=== PATIENT | female | born 1995 | race American Indian/Alaskan Native ===

== ENCOUNTER → 2018-07-05 16:34 | Outpatient (CLI) | payer OTHER, SELFPAY ==
--- NOTE | 2018-07-05 16:42 | DI.RAD.S_ITS ---
PROCEDURE: XR CLAVICLE LT INDICATIONS: LEFT SHOLDER PAIN TECHNIQUE: 2 views of the clavicle were acquired. COMPARISON: [facility], CR, CLAVICLE COMP (LT), 08/10/2012, 21:02. FINDINGS: Bones: No fractures or dislocations. No suspicious bony lesions. Soft tissues: No suspicious soft tissue calcifications. IMPRESSION: No acute trauma to the clavicle is found. There is mild distortion of the clavicle at its middle third, consistent with a clinical history of prior midshaft fracture identified 08/10/12. Dictated by: Maykel Gomez M.D. on 07/05/2018 at 17:23 Approved by: Maykel Gomez M.D. on 07/05/2018 at 17:24
== END ==
PROVIDERS: PCP Family Medicine; Visit Provider Family Medicine
DX: M25.512 Pain in left shoulder (principal)
CPT/HCPCS: 73000

== ENCOUNTER 2018-11-18 16:56 | Emergency (ER) | payer OTHER, SELFPAY ==
[2018-11-18 17:03] VITALS: BP 128/85; PULSE 76; RESP 15; TEMP 37; O2SAT 99
[2018-11-18 17:34] LABS: Bacteria Urine Occasional (0-1); Culture Indicated Urine Specimen Cultured; RBC Urine >100/HPF (0-5/HPF); Squamous Epithelial Cell Urine 0-1 /HPF (0-5/HPF); Trichomonas Urine 1-5/HPF (None Seen); WBC Urine 10-30/HPF (0-5/HPF)
--- NOTE | 2018-11-18 17:37 | PC.NURSE ---
pt describes cramping starting at 0700, used a tampon and when taking it out saw a blood clot on the tampon. pt states that made her nervous so she hasn't used anything but toilet paper. pt states she isn't bleeding, it was a couple of clots.
--- NOTE | 2018-11-18 17:42 | ED_ITS ---
HPI - Female Genitourinary <DAI Wall - Last Filed: 11/18/18 19:08> General Chief complaint: Vaginal Bleeding Stated complaint: sent by [facility], cramps,back pain,states blood clots Time Seen by Provider: 11/18/18 17:14 Source: patient Mode of arrival: ambulatory Limitations: no limitations History of Present Illness HPI Narrative: For a 3-year-old healthy female presents emergency department today complaining of spotting between her cycles for 1 day. She states last month she spotted for 1 day, and this month she was spotting today as well. She noticed to clots during the day, she states the bleeding is not as bad as when she menstruates. She reports associated mild lower abdominal cramping. Denies any other vaginal discharge or odor. Patient denies any dizziness, chest pain, shortness of breath, fevers, abdominal pain, nausea, vomiting, concern for STDs, concern for , use of control, back pain, or other concerning issues. Related Data Previous Rx's Medication Instructions Recorded nitrofurantoin monohyd/m-cryst 100 mg PO BID #14 cap 12/20/16 [Macrobid] Allergies Allergy/AdvReac Type Severity Reaction Status Date / Time No Known Drug Allergies Allergy Verified 11/18/18 17:03 Review of Systems <DAI Wall - Last Filed: 11/18/18 19:08> Review of Systems Narrative: REVIEW OF SYSTEMS: GENERAL: Denies fever, chills, malaise, or wt. loss. HENT: No head trauma, sore throat, or dysphagia. EYES: No loss of vision, double vision, eye pain, or irritation. CARDIOVASCULAR: No chest pain, palpitations, or orthopnea. RESPIRATORY: No shortness of breath or cough. GASTROINTESTINAL: Denies abdominal pain. GENITOURINARY: Patient reports 1 day of spotting in between cycles, see HPI. No flank pain, urinary incontinence, hesitancy, frequency, or dysuria. MUSCULOSKELETAL: No pain, weakness, or trauma. INTEGUMENTARY: No rash, lesions, or pruritus. NEURO: No numbness, tingling, memory loss, confusion, or headaches. PSYCH: No behavior or mood changes. PFSH <DAI Wall - Last Filed: 11/18/18 19:08> Medical History No significant medical problems (Acute) Social History Smoking Status: Never smoker Social History Smoking Status: Never smoker Exam <DAI Wall - Last Filed: 11/18/18 19:08> Initial Vital Signs Initial Vital Signs: Vital Signs Temperature 98.6 F 11/18/18 17:03 Pulse Rate 76 11/18/18 17:03 Respiratory Rate 15 11/18/18 17:03 Blood Pressure 128/85 11/18/18 17:03 Pulse Oximetry 99 11/18/18 17:03 PHYSICAL EXAMINATION: GENERAL: Well groomed, alert, and cooperative. Answers questions promptly and appropriately. Vital signs noted. HENT: Normocephalic, atraumatic. Hearing intact. Oral mucosa is pink and moist. EYES: Conjunctiva pink, sclera white, no periorbital swelling. CARDIOVASCULAR: S1 and S2 sounds normal. Regular rate and rhythm, no murmurs, clicks, or bruits. No pedal edema. RESPIRATORY: Normal respiratory rate, trachea midline, airway patent. No stridor, nasal flaring or accessory muscle use. Lungs are clear in all ponce without wheeze, rhonchi, or crackles. GASTROINTESTINAL: Bowel sounds normoactive. Abdomen is soft and non-tender. No organomegaly, no palpable masses. GENITALURINARY: No flank tenderness. MUSCULOSKELETAL: Normal gait and coordination. Equal tone and mass bilaterally. EXTREMITIES: CMS intact, no pedal edema. SKIN: Warm, dry, soft, appropriate color for ethnicity. No lesions, rashes, or wounds. NEURO: Alert and Oriented X 3. Good coordination. No ataxia, or sensory deficits, or cognitive issues. PSYCH: Appropriate affect and mood. <Chelita Barros MD - Last Filed: 11/18/18 19:11> Initial Vital Signs Initial Vital Signs: Vital Signs Temperature 98.6 F 11/18/18 17:03 Pulse Rate 76 11/18/18 17:03 Respiratory Rate 15 11/18/18 17:03 Blood Pressure 128/85 11/18/18 17:03 Pulse Oximetry 99 11/18/18 17:03 Course <DAI Wall - Last Filed: 11/18/18 19:08> Course Course Narrative: I had an extensive conversation with the patient about the need of for further testing and follow up with her primary care provider if her symptoms continue and her cycle remain abnormal. I explained that she had trichomoniasis within her urine today, she continued to deny any concerns for STIs. Patient continued to deny that she had no vaginal complaints than bleeding. She agreed to follow her primary care provider for further testing if she decides. Orders Ordered: ED Orders 11/18/18 17:05 Urine Culture Stat Urine Microscopic Stat Discontinued Medications Metronidazole (Metronidazole) 2,000 mg PO NOW ONE Stop: 11/18/18 18:30 Last Admin: 11/18/18 18:40 Dose: 2,000 mg Documented by: KBROTEM Vital Signs Vital signs: Vital Signs - 8 hr 11/18/18 17:03 11/18/18 19:01 Temperature 98.6 F Pulse Rate 76 60 Respiratory Rate 15 Blood Pressure 128/85 124/80 Pulse Oximetry 99 97 <Chelita Barros MD - Last Filed: 11/18/18 19:11> Orders Ordered: ED Orders 11/18/18 17:05 Urine Culture Stat Urine Microscopic Stat Discontinued Medications Metronidazole (Metronidazole) 2,000 mg PO NOW ONE Stop: 11/18/18 18:30 Last Admin: 11/18/18 18:40 Dose: 2,000 mg Documented by: KBROTEM Vital Signs Vital signs: Vital Signs - 8 hr 11/18/18 17:03 11/18/18 19:01 Temperature 98.6 F Pulse Rate 76 60 Respiratory Rate 15 Blood Pressure 128/85 124/80 Pulse Oximetry 99 97 MDM - Female Genitourinary <DAI Wall - Last Filed: 11/18/18 19:08> Medical Records Attestation: I reviewed the patient's medical records. Lab Data Attestation: I reviewed the patient's lab results. Labs: Lab Results 11/18/18 Range/Units 17:05 Urine RBC >100/hpf H (0-5/HPF) Urine WBC 10-30/hpf H (0-5/HPF) Ur Squamous Epith Cells 0-1 /hpf (0-5/HPF) Urine Bacteria Occasional (0-1) (None) Urine Trichomonas 1-5/hpf H (None Seen) Ur Culture Indicated? Specimen cultured Point of Care Testing Test Results Negative Urine Dip Bedside Urine Glucose Negative Bedside Urine Bilirubin - Negative Bedside Urine Ketone - Negative Urine Specific [place] 1.015 Bedside Urine Occult Blood +++ Bedside Urine pH 6 Bedside Urine Protein +/- 15 Bedside Urine Urobilinogen +/- 1mg Bedside Urine Nitrite - Negative Bedside Urine Leukocytes +++ 500 Esterase MDM Narrative Medical decision making narrative: Differential includes hormonal changes/imbalances, fibroids, endometriosis, ovarian cysts, (less likely due to negative urine ), urinary tract infection (possible due to slight occurrence of white blood cells noted), or trichomoniasis (as present on urine). Less likely malignancy as patient reports having only 2 episodes of 1 day of spotting in between cycles, she is well and childbearing age, and denies any other symptoms. However close follow-up is needed to further determine the exact diagnosis. <Chelita Barros MD - Last Filed: 11/18/18 19:11> Lab Data Labs: Lab Results 11/18/18 Range/Units 17:05 Urine RBC >100/hpf H (0-5/HPF) Urine WBC 10-30/hpf H (0-5/HPF) Ur Squamous Epith Cells 0-1 /hpf (0-5/HPF) Urine Bacteria Occasional (0-1) (None) Urine Trichomonas 1-5/hpf H (None Seen) Ur Culture Indicated? Specimen cultured Point of Care Testing Test Results Negative Urine Dip Bedside Urine Glucose Negative Bedside Urine Bilirubin - Negative Bedside Urine Ketone - Negative Urine Specific [place] 1.015 Bedside Urine Occult Blood +++ Bedside Urine pH 6 Bedside Urine Protein +/- 15 Bedside Urine Urobilinogen +/- 1mg Bedside Urine Nitrite - Negative Bedside Urine Leukocytes +++ 500 Esterase Discharge Plan Departure Patient Disposition: Home Clinical Impression: Trichomoniasis, Vaginal bleeding Discharge Date/Time: 11/18/18 19:02 Instructions: DI for Vaginal Bleeding, DI for Trichomoniasis Activity Restrictions/Additional Instructions: Thank you for entrusting me with your care today. As discussed, there was some Trichomonas found in your urine, we have given you a dose of antibiotics here in the emergency department, you only need 1 dose for this and this should clear up the bacteria. Please follow up with your primary care provider for further testing if you continue to have vaginal bleeding. Return to the emergency department if he develops chest pain, shortness of breath, seizures, syncope, or other concerning symptoms. Prescriptions: No Action nitrofurantoin monohyd/m-cryst [Macrobid] 100 MG capsule 100 mg PO BID Qty: 14 RF: 0 Referrals: Elizabeth Bear MD [Primary Care Provider] -
[2018-11-18] MEDS: metroNIDAZOLE 500 MG TABLET 2000 MG PO (18:40)
[2018-11-18 19:01] VITALS: BP 124/80; PULSE 60; O2SAT 97
== END 2018-11-18 19:02 | disposition home or self-care (01) ==
PROVIDERS: Emergency Medicine; Emergency Provider Nurse Practitioner; PCP Family Medicine
DX: A59.9 Trichomoniasis, unspecified (principal); N93.9 Abnormal uterine and vaginal bleeding, unspecified
CPT/HCPCS: 81003; 81015; 81025; 87086; 99282; 99283

== ENCOUNTER 2019-04-28 01:52 | Emergency (ER) | payer MEDICAID, OTHER, SELFPAY ==
[2019-04-28 01:55] VITALS: BP 126/81; PULSE 78; RESP 15; TEMP 36.9; O2SAT 98
--- NOTE | 2019-04-28 01:57 | DI.RAD.S_ITS ---
PROCEDURE: XR CHEST 1V INDICATIONS: Chest pain with cough TECHNIQUE: One view of the chest was acquired. COMPARISON: None. FINDINGS: Surgical changes and devices: None. Lungs and pleura: Lungs are clear. No pleural effusions or pneumothorax. Mediastinum: Mediastinal contours appear normal. Heart size is normal. Bones and chest wall: No suspicious bony lesions. Overlying soft tissues appear unremarkable. IMPRESSION: No acute cardiopulmonary disease. Dictated by: Rosa Iyer M.D. on 04/28/2019 at 9:07 Approved by: Rosa Iyer M.D. on 04/28/2019 at 9:08
--- NOTE | 2019-04-28 01:58 | ED.GENADULT ---
HPI - General Adult General Chief complaint: Chest Pain Stated complaint: chest pain and cough Time Seen by Provider: 04/28/19 01:57 Source: patient Mode of arrival: Ambulatory Limitations: no limitations History of Present Illness HPI narrative: Patient is a 23-year-old female here for evaluation of several days of a sore throat, sinus congestion, cough. She has been using cough drops and [id number] medications without any improvement. She did see her clinic and they performed a rapid strep test which patient states she was told was negative. She was told by her provider that for symptoms worsen she needs to be re-evaluated. Related Data Previous Rx's Medication Instructions Recorded nitrofurantoin monohyd/m-cryst 100 mg PO BID #14 cap 12/20/16 [Macrobid] Allergies Allergy/AdvReac Type Severity Reaction Status Date / Time No Known Drug Allergies Allergy Verified 11/18/18 17:03 Review of Systems Constitutional Constitutional: Denies fever(s) Eyes Eyes: Denies change in vision ENT Ears, Nose, Mouth, and Throat: Denies vertigo, Denies dizziness, Denies ear discharge, Reports sinus pressure and Reports sore throat Respiratory Respiratory: Reports cough Integumentary/Breasts Skin/Breast: Denies lesions and Denies rash Neurologic Neurologic: Denies vertigo and Denies dizziness Hematologic/Lymphatic Hematologic/Lymphatic: Denies easy bleeding and Denies easy bruising Patient History Medical History No significant medical problems (Acute) Social History Smoking Status: Never smoker Smoking Status: Never smoker Substance Use Type: does not use Exam Initial Vital Signs Initial Vital Signs: Vital Signs Temperature 98.5 F 04/28/19 01:55 Pulse Rate 78 04/28/19 01:55 Respiratory Rate 15 04/28/19 01:55 Blood Pressure 126/81 04/28/19 01:55 Pulse Oximetry 98 04/28/19 01:55 Const General: cooperative and comfortable Limitations: mental status not altered HENMT Head: normal to inspection and normocephalic Ears: TM's normal bilaterally Nose: external nose normal Mouth: oral mucosae normal Throat: posterior oropharynx normal Neck Lymphatic: lymphadenopathy Resp Effort & Inspection: normal respiratory effort Auscultation: clear to auscultation bilaterally Cardio Rate: regular rate Rhythm: regular rhythm Skin Lesions: no lesions Rashes: no rashes Neuro General: alert, awake and oriented x3 Cognition: normal cognition Speech: speech normal Extrem General: normal to inspection and capillary refill normal Scores GCS Amber coma scale eye opening: Spontaneous [place] coma scale verbal response: Orientated [place] coma scale motor response: Obey commands Eighty Eight coma scale total score: 15 Course Orders Ordered: ED Orders 04/28/19 01:57 XR chest 1V Stat EKG-12 Lead Stat Vital Signs Vital signs: Vital Signs - 8 hr 04/28/19 01:55 Temperature 98.5 F Pulse Rate [Left] 78 Respiratory Rate 15 Blood Pressure [Left Arm] 126/81 Pulse Oximetry 98 Medical Decision Making Imaging Data Chest x-ray: Attestation: I personally reviewed and interpreted this imaging study as follows: My Impression: No pneumonia, no acute changes ECG Data Attestation: I personally reviewed and interpreted this ECG as follows: Prior ECG tracings: not available for review Interpretation: Sinus rhythm Ventricular rate is 71 Normal axis Normal QRS Normal QTC No ST T wave changes MDM Narrative Medical decision making narrative: Patient with a very benign exam. Low suspicion for pneumonia secondary to chest x-ray. Her exam is not consistent with strep throat. Low suspicion for flu. Do suspect a viral URI. Patient was given return precautions and follow-up instructions. She was also given instructions to start taking an over counter antihistamine. She expressed understanding and agreement plan. Discharge Plan Departure Patient Disposition: Home Clinical Impression: Upper respiratory infection Qualifiers: URI type: unspecified viral URI Qualified Code(s): J06.9 - Acute upper respiratory infection, unspecified Instructions: DI for Viral Upper Respiratory Infection -- Adult Activity Restrictions/Additional Instructions: Recommend that you start on a antihistamine such as Claritin or Hali or Zyrtec. You can buy these [id number]. You take Tylenol for any fevers or headaches or body aches. Contact your primary provider for follow-up. Return to the emergency department for any new or worsening symptoms Prescriptions: No Action nitrofurantoin monohyd/m-cryst [Macrobid] 100 MG capsule 100 mg PO BID Qty: 14 RF: 0 Referrals: Elizabeth Bear MD [Primary Care Provider] -
== END 2019-04-28 02:30 | disposition home or self-care (01) ==
PROVIDERS: Emergency Provider Emergency Medicine; PCP Family Medicine
DX: J06.9 Acute upper respiratory infection, unspecified (principal); R07.9 Chest pain, unspecified
CPT/HCPCS: 71045; 93005; 99283; 99284

== ENCOUNTER → 2019-06-08 09:24 | Outpatient (CLI) | payer MEDICAID, OTHER, SELFPAY ==
[2019-06-08 10:00] LABS: Add Manual Diff / Slide Review NO; Basophils Absolute Auto 0 /uL (0-100); Basophils Percent Auto 0.6 % (0-2); Eosinophils Absolute Auto 100 /uL (0-450); Eosinophils Percent Auto 1.3 % (2-4); Hematocrit 40.2 % (36-46); Hemoglobin 13.8 g/dL (12.0-16.0); Lymphocytes Absolute Auto 1300 /uL (1100-4500); Lymphocytes Percent Auto 18.2 % (25-40); Mean Corpuscular HGB Conc 34.4 % (30-36); Mean Corpuscular Hemoglobin 31.2 PG (26-34); Mean Corpuscular Volume 90.7 fL (80-100); Monocytes Absolute Auto 400 /uL (0-900); Monocytes Percent Auto 5.3 % (3-14); Neutrophils Absolute Auto 5200 /uL (1500-7000); Neutrophils Percent Auto 74.6 % (50-75); Platelet Count 302 X10^3/uL (150-400); Red Blood Cell Count 4.43 X10^6/uL (4.0-5.2); White Blood Cell Count 6.9 X10^3/uL (4.5-11.0)
[2019-06-08 10:04] LABS: Bilirubin Urine UA NEGATIVE (NEGATIVE); Color Urine UA YELLOW; Glucose Urine UA NEGATIVE (Negative); Ketones Urine UA NEGATIVE (NEGATIVE); Leukocyte Esterase Urine UA 1+ (NEGATIVE); Nitrite Urine UA NEGATIVE (Negative); Occult Blood Urine UA TRACE-INTACT (Negative); Protein Urine UA TRACE (Negative); Specific Gravity Urine UA 1.025 (1.000-1.035); Urobilinogen Urine UA 0.2 E.U./dL (0.2)
[2019-06-08 10:06] LABS: Appearance Urine UA Slightly Cloudy; pH Urine UA 6.5 (4.5-8.0)
[2019-06-08 11:00] LABS: Amorphous Sediment Urine 1+; Bacteria Urine Many (>30); RBC Urine 0-1/HPF (0-5/HPF); Squamous Epithelial Cell Urine 10-30 /HPF (0-5/HPF); WBC Urine 10-30/HPF (0-5/HPF)
[2019-06-09 04:36] LABS: RPR Screen Non Reactive (Non Reactive)
[2019-06-09 08:07] LABS: Varicella IgG Antibody 415 index (Immune >165)
[2019-06-09 15:14] LABS: Hepatitis B Surface Antigen NEGATIVE s/c (NEGATIVE); Rubella Antibody IgG 4.5 IU/mL (>15)
[2019-06-09 15:26] LABS: HIV 1 & 2 Ab/Ag 4th Gen Combo NEGATIVE (NEGATIVE); Hep C Virus Ab w/Reflex Quant NEGATIVE s/c (NEGATIVE)
== END ==
PROVIDERS: PCP Family Medicine; Referring Provider Family Medicine; Visit Provider Family Medicine
DX: Z34.81 Encounter for supervision of other normal pregnancy, first trimester (principal)
CPT/HCPCS: 36415; 80055; 81003; 81015; 86787; 86803; 86850; 86900; 86901; 87086; 87389

== ENCOUNTER → 2019-08-26 14:15 | Outpatient (CLI) | payer MEDICAID, OTHER, SELFPAY ==
--- NOTE | 2019-08-26 14:18 | DI.US.S_ITS ---
PROCEDURE: US OB >= 14 WEEKS FETUS INDICATIONS: ANATOMIC SURVEY OUTSIDE/PRIOR DATING DATA: First dating scan (date and location): 08/26/19. Estimated date of delivery (HECTOR) from first dating scan: 01/09/20. TECHNIQUE: Real-time scanning was performed of the fetus, with image documentation and biometric measurements. COMPARISON: None. FINDINGS: General: A single living intrauterine gestation is present. Presentation: Breech. Placenta: Placental position is posterior, without previa. Amniotic fluid index: 13.1 cm, normal range is 5-24 cm. heart rate: 149 beats per minute. Maternal cervical canal: 3.6 cm long. Normal lower limit is 2.5 cm. biometrics: Biparietal diameter: 20 weeks 4 days Head circumference: 20 weeks 2 days Abdominal circumference: 21 weeks 4 days Femur length: 19 weeks 6 days Estimated gestational age from initial scan: not applicable. Composite gestational age from present scan: 20 weeks 4 days Estimated weight and percentile: 376 g Measurement variability for biometric dating: +/- 7 days from 14 weeks to 15 weeks 6 days gestation, +/- 10 days from 16 weeks to 21 weeks 6 days gestation, +/- 2 weeks from 22 weeks to 27 weeks 6 days gestation, +/- 3 weeks for 28 weeks gestation or later. weight reference: 4500 g or EFW >90/95% is considered macrosomia or large for gestational age. EFW <10% is small for gestational age. EFW 5% or less is considered intra-uterine growth restriction. Anatomic survey: Neuro: Ventricles are non-dilated at less than 10 mm. Cisterna magna is normal at 3-11 mm. Cerebellum is normal in size and morphology. Nuchal skin fold: Normal at less than 6 mm between 14-21 weeks gestational age. Face: Nose and lips are normal. Facial profile not well-seen. Spine: No evidence for spina bifida. Heart: 4-chambered heart is present, with normal ventricular outflow tracts. Diaphragm: Diaphragm is intact. Stomach: Left-sided stomach is present. Kidneys: No hydronephrosis. Normal is less than 5 mm in 2nd trimester, less than 7 mm in 3rd trimester. Cord: 3-vessel cord has orthotopic insertion. Bladder: Normal in size. Extremities: All 4 extremities identified. IMPRESSION: 1. Coulter living intrauterine at 20 weeks 4/7 days based on today's ultrasound. 2. Normal placenta and amniotic fluid. 3. Normal and complete anatomic survey. Dictated by: Marlon GARRIDO Interpreted: Milton Osei MD on 08/26/2019 at 15:20 Approved by: Milton Osei M.D. on 08/26/2019 at 16:04
== END ==
PROVIDERS: PCP Family Medicine; Referring Provider Family Medicine; Visit Provider Family Medicine
DX: Z34.82 Encounter for supervision of other normal pregnancy, second trimester (principal); Z3A.20 20 weeks gestation of pregnancy
CPT/HCPCS: 76811

== ENCOUNTER → 2019-11-01 14:26 | Outpatient (CLI) | payer MEDICAID, OTHER, SELFPAY ==
[2019-11-01 16:22] LABS: Hemoglobin 11.7 g/dL (12.0-16.0)
[2019-11-01 16:24] LABS: GTT (PREG) 1 Hour PP 50gm Dose 106 mg/dL (76-139)
== END ==
PROVIDERS: PCP Family Medicine; Referring Provider Family Medicine; Visit Provider Family Medicine
DX: Z34.82 Encounter for supervision of other normal pregnancy, second trimester (principal); Z3A.26 26 weeks gestation of pregnancy
CPT/HCPCS: 36415; 82950; 85014; 85018

== ENCOUNTER → 2019-12-13 14:52 | Outpatient (CLI) | payer MEDICAID, OTHER, SELFPAY ==
[2019-12-14 12:56] LABS: Strep Grp B PCR NEG for Grp B Strep
== END ==
PROVIDERS: PCP Family Medicine; Visit Provider Family Medicine
DX: Z34.83 Encounter for supervision of other normal pregnancy, third trimester (principal); Z3A.36 36 weeks gestation of pregnancy
CPT/HCPCS: 87653

== ENCOUNTER 2019-12-29 03:25 | Inpatient (IN) | payer MEDICAID, OTHER, SELFPAY ==
[2019-12-29 03:40] VITALS: BP 128/69
[2019-12-29 04:22] LABS: Add Manual Diff / Slide Review NO; Basophils Absolute Auto 0 /uL (0-100); Basophils Percent Auto 0.3 % (0-2); Eosinophils Absolute Auto 0 /uL (0-450); Eosinophils Percent Auto 0.3 % (2-4); Hematocrit 36.9 % (36-46); Hemoglobin 12.5 g/dL (12.0-16.0); Lymphocytes Absolute Auto 1300 /uL (1100-4500); Lymphocytes Percent Auto 15.1 % (25-40); Mean Corpuscular HGB Conc 33.8 % (30-36); Mean Corpuscular Hemoglobin 30.3 PG (26-34); Mean Corpuscular Volume 89.7 fL (80-100); Monocytes Absolute Auto 500 /uL (0-900); Monocytes Percent Auto 5.3 % (3-14); Neutrophils Absolute Auto 7000 /uL (1500-7000); Platelet Count 253 X10^3/uL (150-400); Red Blood Cell Count 4.11 X10^6/uL (4.0-5.2); Red Cell Distribution Width 15.5 % (11.6-14.8); White Blood Cell Count 8.8 X10^3/uL (4.5-11.0)
[2019-12-29] MEDS: LACTATED RINGERS 1,000 ML 100 ML IV ×2 (04:22→04:57)
[2019-12-29 04:27] LABS: COVID19 -Nasal RAPID Negative (Negative)
[2019-12-29] MEDS: METHYLERGONOVINE 0.2 MG/ML VIAL IM (07:00)
[2019-12-29] MEDS: OXYTOCIN 10 UNIT/ML VIAL 20 UNIT (07:00)
[2019-12-29] MEDS: miSOPROStoL 200 MCG TABLET 400 MCG PO (07:02)
--- NOTE | 2019-12-29 07:13 | PM.OBHP.1 ---
OB HPI History of Present Condition Chief complaint: Evaluation of labor Narrative: Carmelita Knapp is a 24 year old female G2 para 1 with an estimated due date of 01/07/2020 consistent with LMP and early ultrasound with puts her at 37 and 6 7th weeks. 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 Patient started leonardo yesterday afternoon. 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 Contractions were every 3-5 minutes. Moderate intensity. Presented to the labor and delivery floor and was active labor. Yesterday patient states she was feeling fine. No bleeding no spotting no leaking of fluid no headache dizziness blurry vision. 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 Family/Other Breast cancer Father No problems noted. Grandfather No problems noted. Grandmother No problems noted. Grandfather No problems noted. Grandmother No problems noted. Sister RSV (acute bronchiolitis due to respiratory syncytial virus) Social History marital status: unmarried,living together number of children: 1 household members: significant other pets and animals: No education level: high school occupational status: unemployed current occupational exposures/hazards: No special erica needs: No Smoking Status: Never smoker second hand exposure: No alcohol intake: never substance use type: does not use Meds Home Medications and Allergies Home Medications Medication Instructions Recorded Confirmed Type prenat.vits,choco,hnq-dhnn-zietu 1 tab PO DAILY 06/07/19 12/29/19 History Allergies Allergy/AdvReac Type Severity Reaction Status Date / Time No Known Drug Allergies Allergy Verified 12/29/19 04:07 Exam Vital Signs (past 8 hours): - 12/29/19 03:40 Blood Pressure 128/69 Objective Labs Result Diagrams: 12/29/19 04:09 Labs: Laboratory Results - last 24 hr 12/29/19 12/29/19 12/29/19 03:45 04:09 04:09 WBC 8.8 RBC 4.11 Hgb 12.5 Hct 36.9 MCV 89.7 MCH 30.3 MCHC 33.8 RDW 15.5 H Plt Count 253 Neut % (Auto) 79.0 H Lymph % (Auto) 15.1 L [place] % (Auto) 5.3 Eos % (Auto) 0.3 L Baso % (Auto) 0.3 Neut # (Auto) 7000 Lymph # (Auto) 1300 [place] # (Auto) 500 Eos # (Auto) 0 Baso # (Auto) 0 COVID-19 PCR Negative Blood Type O Positive Antibody Screen Negative Assessment and Plan Assessment and Plan Assessment and Plan narrative: 24-year-old G2 para 138 and 6 7th weeks gestational age in active labor. Labor orders were reviewed. heart tone tracing is category 1. Patient in active labor. Epidural as requested per patient. All consents and orders were reviewed.
--- NOTE | 2019-12-29 07:18 | P.PCN_ITS ---
Procedures Date/Time Date of procedure: 12/29/19 Time of procedure: 07:18 General Procedure description: Vaginal delivery Stage I of labor. Approximately 8 hours. During stage I of labor. Patient had moderate contractions without the use of Pitocin. She got to 5 6 cm and requested an epidural which was placed with good results. During stage I of labor she had category 1 tracing category 2 tracing after placing Canseco and epidural. But baby did well throughout that. She is leonardo regularly throughout this time and made good progress. She had rupture of membranes when she was complete with clear amniotic fluid. Blood pressure and temperature were stable. GBS status was negative. Stage II of labor. Approximately 15 minutes Delivery of viable female over an intact perineum. Baby was in the vertex position with no nuchal cord. Mom had great pushing affect. Vital signs were stable in heart tones were normal during stage II of labor. At the delivery of the baby's head and shoulders. Baby was placed on mother's abdomen. Cord was then cut and transected after pulsing. Baby had vigorous cry. Stage III of labor. Immediate delivery of placenta after the baby. Three- vessel cord delivery of intact placenta. After a baby was delivered. Bleeding was moderate to heavy. Patient was given 10 units IM Pitocin in a bag of Pitocin was hand on. Blood pressures were then re-evaluated. Patient was still moderately bleeding with the consistent fundal massage. She was given Methergine IM as well as the Cytotec orally. After about 15 minutes of good fundal massage medication. Bleeding slowed down. And most recent evaluation bleeding is much better. Her uterus is firm. Mom and baby year doing well. Mom's blood pressure is stable she is a little bit tachycardic. Estimated blood loss 700 cc. Apgars 9 and 9 Delivery diagnoses delivery of 1. female vaginally 2. Delivery of intact placenta 3. hemorrhage approximately 700 cc of blood loss with Pitocin IM IV Methergine and Cytotec
[2019-12-29] MEDS: DOCUSATE 100 MG CAPSULE PO (12:19)
[2019-12-29] MEDS: PRENATAL VIT,CALC/IRON/FOLIC 1 TABLET 1 TAB PO (12:19)
[2019-12-29] MEDS: ACETAMINOPHEN 325 MG TABLET 650 MG PO ×2 (12:20→18:22)
[2019-12-29] MEDS: LANOLIN OINT 7 GM 1 APPLIC TOP (12:20)
[2019-12-29] MEDS: IBUPROFEN 600 MG TABLET PO ×2 (12:22→18:22)
[2019-12-30] MEDS: IBUPROFEN 600 MG TABLET PO ×2 (00:50→07:50)
[2019-12-30] MEDS: ACETAMINOPHEN 325 MG TABLET 650 MG PO ×2 (00:51→07:49)
[2019-12-30 07:21] LABS: Hematocrit 26.6 % (36-46); Hemoglobin 8.9 g/dL (12.0-16.0)
[2019-12-30] MEDS: PRENATAL VIT,CALC/IRON/FOLIC 1 TABLET 1 TAB PO (07:49)
[2019-12-30] MEDS: DOCUSATE 100 MG CAPSULE PO (07:51)
--- NOTE | 2019-12-30 08:58 | PM.DS.1 ---
History of Present Illness History of Present Illness Chief complaint: Labor & Delivery Discharge Providers Provider Date of admission: 12/29/19 03:25 Discharge Date: 12/30/19 Primary care physician: Jacobo Blanco MD Consults: 12/29/19 03:41 Consult to Anesthesiology Urgent Comment: Consulting Provider: Bre Dinh Reason for consultation: Pain management for labor 12/30/19 07:22 Consult to Special Education Classroom Aide Routine Comment: Discharge provider: Jacobo Blanco MD Summary Hospital Course Discharge Diagnosis: Delivery of live female infant vaginally hemorrhage Routine care Hospital Course: Patient was admitted to the labor and delivery for active labor. Patient progressed to deliver a viable female infant vaginally with Apgars 9 and 9. Patient had a hemorrhage was given Pitocin Methergine and Cytotec. After these maneuvers patient had decreased vaginal bleeding in uterus was firm. Hemoglobin went from 12-8. She is hemodynamically stable bleeding has been fine. Her pain is well controlled. Postoperatively day 1 she is eating ambulating breast-feeding is going well she is tolerating her diet. No significant edema. In blood pressures are normal. Exam Narrative Exam Narrative: General: Alert no apparent distress. Affect is appropriate. Eric it is uncomfortable. HEENT: Neck is supple without lymphadenopathy pupils equal round and reactive. Cardio: S1-S2 regular rate and rhythm. Respiratory: Lungs clear to auscultation. Abdomen: Uterus firm. Extremities: Normal deep tendon reflexes trace edema. Objective Labs Result Diagrams: 12/30/19 06:44 Labs: Laboratory Results - last 24 hr 12/30/19 06:44 Hgb 8.9 L Hct 26.6 L Discharge Plan Discharge Plan Patient Disposition: Home Discharge orders & Medications Prescriptions: New docusate sodium [DOK] 100 mg Capsule 100 mg PO BID Qty: 0 RF: 0 ibuprofen 600 mg Tablet 600 mg PO Q6HR PRN (Reason: Pain, Mild (1-3)) Qty: 0 RF: 0 Continued prenat.vits,choco,dqs-tkrc-fnocr Tablet 1 tab PO DAILY RF: 0 Follow up/Referrals: Jacobo Blanco MD [Primary Care Provider] - Visit Report/Discharge Packet Visit Report Forms: Patient Portal/API, Stroke Signs & Symptoms Discharge Data Primary Care Provider: Jacobo Blanco
== END 2019-12-30 13:55 | disposition home or self-care (01) | DRG 768 ==
PROVIDERS: Admitting Provider Family Medicine; PCP Family Medicine; Referring Provider Student in an Organized Health Care Education/Training Program; Visit Provider Family Medicine
DX: O98.32 Other infections with a predominantly sexual mode of transmission complicating childbirth (principal); Z37.0 Single live birth; O72.1 Other immediate postpartum hemorrhage; Z3A.37 37 weeks gestation of pregnancy; B00.9 Herpesviral infection, unspecified
CPT/HCPCS: 01967; 36415; 59050; 59410; 85014; 85018; 85025; 86850; 86900; 86901; 87635; G0379; J2210; J2590; S0191

== ENCOUNTER → 2020-12-27 09:54 | Outpatient (CLI) | payer MEDICAID, OTHER, SELFPAY ==
--- NOTE | 2020-12-27 09:55 | DI.US.S_ITS ---
PROCEDURE: US OB <= 14 WEEKS FETUS INDICATIONS: INITIAL VIABILITY DATING OUTSIDE/PRIOR DATING DATA: Last menstrual period (LMP): November 01, 2020 LMP-based estimated date of delivery (HECTOR): August 08, 2021 First dating scan (date and location): December 27, 2020 Estimated date of delivery (HECTOR) from first dating scan: August 10, 2021 TECHNIQUE: Real-time scanning was performed of the fetus and maternal pelvic organs, with image documentation. Endovaginal scanning was also performed to better visualize the fetus and maternal ovaries. COMPARISON: None. FINDINGS: Embryo: Single living intrauterine . pole and yolk sac are identified. Gallant-rump length measures 1.4 centimeters corresponding to ultrasound estimated gestational age of 7 weeks 5 days. Heart rate: 152 beats per minute Measurement variability in dating: +/- 4 weeks by LMP, +/- 7 days by mean sac diameter (use before 6 weeks gestation if crown-rump length not able to be measured), +/- 5 days by crown-rump length (up to 8 weeks 6 days gestation), +/- 7 days by crown-rump length (up to 13 weeks 6 days gestation). Maternal organs: Ovaries are within normal limits. IMPRESSION: Single living intrauterine with ultrasound estimated gestational age of 7 weeks 5 days corresponding to ultrasound HECTOR of August 10, 2021. Dictated by: Evy Houston MD, PhD on 12/27/2020 at 12:26 Approved by: Evy Houston MD, PhD on 12/27/2020 at 12:28
== END ==
PROVIDERS: PCP Family Medicine; Referring Provider Family Medicine; Visit Provider Family Medicine
DX: Z34.81 Encounter for supervision of other normal pregnancy, first trimester (principal); Z3A.01 Less than 8 weeks gestation of pregnancy
CPT/HCPCS: 76801; 76817

== ENCOUNTER → 2021-02-12 11:40 | Outpatient (CLI) | payer MEDICAID, OTHER, SELFPAY ==
[2021-02-12 12:44] LABS: Basophils Absolute Auto 0 /uL (0-100); Basophils Percent Auto 0.4 % (0-2); Lymphocytes Percent Auto 19.8 % (25-40); Mean Corpuscular Hemoglobin 27.8 PG (26-34); Mean Corpuscular Volume 81.7 fL (80-100); Monocytes Absolute Auto 300 /uL (0-900); Monocytes Percent Auto 5.3 % (3-14); Neutrophils Percent Auto 73.6 % (50-75); Platelet Count 285 X10^3/uL (150-400); Red Blood Cell Count 4.18 X10^6/uL (4.0-5.2); White Blood Cell Count 5.1 X10^3/uL (4.5-11.0)
[2021-02-12 13:17] LABS: Appearance Urine UA SL CLOUDY; Bilirubin Urine UA NEGATIVE (NEGATIVE); Color Urine UA YELLOW; Glucose Urine UA NEGATIVE (Negative); Ketones Urine UA NEGATIVE (NEGATIVE); Leukocyte Esterase Urine UA 1+ (NEGATIVE); Nitrite Urine UA NEGATIVE (Negative); Occult Blood Urine UA NEGATIVE (Negative); Protein Urine UA NEGATIVE (Negative); Urobilinogen Urine UA 0.2 E.U./dL (0.2)
[2021-02-12 13:41] LABS: pH Urine UA 6.5 (4.5-8.0)
[2021-02-12 13:42] LABS: Bacteria Urine Moderate (10-30); Culture Indicated Urine Cult Not Indicated; HIV 1 & 2 Ab/Ag 4th Gen Combo NEGATIVE (NEGATIVE); Hep C Virus Ab w/Reflex Quant NEGATIVE s/c (NEGATIVE); Hepatitis B Surface Antigen NEGATIVE s/c (NEGATIVE); RBC Urine None Seen (0-5/HPF); Rubella Antibody IgG 3.9 IU/mL (>15); Squamous Epithelial Cell Urine 5-10 /HPF (0-5/HPF); WBC Urine 5-10/HPF (0-5/HPF)
[2021-02-13 08:26] LABS: RPR Screen Non Reactive (Non Reactive)
[2021-02-13 08:36] LABS: Varicella IgG Antibody 481 index (Immune >165)
== END ==
PROVIDERS: PCP Family Medicine; Referring Provider Family Medicine; Visit Provider Family Medicine
DX: Z34.81 Encounter for supervision of other normal pregnancy, first trimester (principal)
CPT/HCPCS: 36415; 80055; 81003; 81015; 86787; 86803; 86850; 86900; 86901; 87086; 87389

== ENCOUNTER → 2021-04-02 12:13 | Outpatient (CLI) | payer MEDICAID, OTHER, SELFPAY ==
--- NOTE | 2021-04-02 12:14 | DI.US.S_ITS ---
PROCEDURE: US OB >= 14 WEEKS FETUS INDICATIONS: ANATOMY OUTSIDE/PRIOR DATING DATA: Last menstrual period (LMP): 11/01/2020 LMP-based estimated date of delivery (HECTOR): 08/08/2021 First dating scan (date and location): 12/27/2020 Estimated date of delivery (HECTOR) from first dating scan: 08/10/2021 The calculations are made using the ultrasound HECTOR of 08/10/2021 TECHNIQUE: Real-time scanning was performed of the fetus, with image documentation and biometric measurements. Endovaginal scanning: Not performed. COMPARISON: [facility], OB >= 14 WEEKS FETUS, 08/26/2019, 14:28. [facility], OB <= 14 WEEKS FETUS, 12/27/2020, 10:10. FINDINGS: General: A single living intrauterine gestation is present. Presentation: Vertex Placenta: Placental position is posterior, without previa. Amniotic fluid index: 16.2 cm, normal range is 5-24 cm. Single deepest vertical pocket is 5.2 cm. heart rate: 153 beats per minute. Maternal cervical canal: 4.1 cm long. Normal lower limit is 2.5 cm. biometrics: Biparietal diameter: 5.27 cm, 22 weeks 0 days Head circumference: 19.45 cm, 21 weeks 5 days Abdominal circumference: 17.42 cm, 22 weeks 2 days Femur length: 3.71 cm, 21 weeks 6 days Clinically estimated gestational age: 21 weeks 3 days Composite gestational age from present scan: 22 weeks 0 days Estimated weight and percentile: 473 grams, 78th percentile Anatomic survey: Neuro: Ventricles are non-dilated at less than 10 mm. Cisterna magna is normal at 3-11 mm. Cerebellum is normal in size and morphology. Nuchal skin fold: Normal at less than 6 mm between 14-21 weeks gestational age. Face: Nose and lips appear normal. Facial profile is not well visualized. Spine: No evidence for spina bifida. Heart: 4-chambered heart is present. Ventricular outflow tracts are not well visualized. Diaphragm: Diaphragm is intact. Stomach: Left-sided stomach is present. Kidneys: No hydronephrosis. Normal is less than 5 mm in 2nd trimester, less than 7 mm in 3rd trimester. Cord: 3-vessel cord has orthotopic insertion. Bladder: Normal in size. Extremities: All 4 extremities identified. IMPRESSION: 1. Single live intrauterine with appropriate interval growth. 2. Facial profile and ventricular outflow tracts are not well visualized due to lie. Follow-up is recommended. 3. Otherwise, normal anatomic survey. We strive to produce accurate, complete, and clear reports of imaging services. To assist us in improving patient care, this report was composed using standard report templates and voice recognition software. Therefore, it may contain abnormal punctuation, insertions and/or omissions. Occasional wrong-word or sound-alike substitutions may occur. Though we review the report and make efforts to correct it, we do recommend that the report be read carefully in proper context to recognize any text inaccuracies. Dictated by: Lele Alicia M.D. on 04/02/2021 at 15:43 Approved by: Lele Alicia M.D. on 04/02/2021 at 15:51
== END ==
PROVIDERS: PCP Family Medicine; Referring Provider Family Medicine; Visit Provider Family Medicine
DX: Z36.89 Encounter for other specified antenatal screening (principal); Z3A.20 20 weeks gestation of pregnancy
CPT/HCPCS: 76811

== ENCOUNTER → 2021-07-23 15:15 | Outpatient (CLI) | payer MEDICAID, OTHER, SELFPAY ==
[2021-07-24 11:39] LABS: Strep Grp B PCR NEG for Grp B Strep
== END ==
PROVIDERS: PCP Family Medicine; Visit Provider Family Medicine
DX: Z34.93 Encounter for supervision of normal pregnancy, unspecified, third trimester (principal); Z3A.37 37 weeks gestation of pregnancy
CPT/HCPCS: 87653

== ENCOUNTER 2021-07-24 04:40 | Inpatient (IN) | payer MEDICAID, OTHER, SELFPAY ==
[2021-07-24] MEDS: OXYTOCIN 10 UNIT/ML VIAL IM ×3 (05:04→06:21)
[2021-07-24 05:19] VITALS: BP 90/51; PULSE 86; RESP 16; TEMP 36.5
--- NOTE | 2021-07-24 05:26 | PM.PROC.1 ---
Procedures Date/Time Date of procedure: 07/24/21 Time of procedure: 05:00 General Procedure description: Called by RN s/p precipitous in parking lot. CNM arrived to patient on stretcher w/ significant apparent blood loss. Stable under warmer. PIV placement in progress. Pitocin 10 units IM given. Cord traction over several minutes resulted in Schultze delivery of an apparently intact placenta membranes and 3VC. Vagina and perineum intact. 1L LR started at a bolus with 20 units of pitocin added. TXA 10g ordered. Uterine atony improved with fundal massage and medication. CBC and T&S collected by lab. arrived and assumed care at at hat time.
--- NOTE | 2021-07-24 05:44 | P.HPOB_ITS ---
OB HPI Date/Time Date of admission: 07/24/21 Date Patient Seen: 07/24/21 Time Patient Seen: 05:25 History of Present Condition Chief complaint: Labor pain HECTOR Calculator Estimated Delivery Date Method Current WG Current Estimate 08/08/21 LMP (Certain) 37w 6d Other Estimates 08/10/21 Ultrasound #1 37w 4d Estimated Gestational Age (weeks): 37.6 : 3 Para: 3 Narrative: Patient is a 26-year-old at 37 weeks and 6 days gestation delivered in the parking lot outside the ER. She states contractions began at about 2:00 a.m.. They started heading to the hospital after 4 a.m. and she delivered at approximately 4:45 a.m. in the parking lot. Infant actually dropped to the ground then was picked up by her partner. She was then taken into the ER then quickly transferred to the center. Crystal Chen CNM, was called. Patient was found to be bleeding briskly so was given Pitocin 10 units IM. Crystal delivered the placenta then inspected the vagina and perineum which were intact. Bleeding determined to be due to uterine atony. Bleeding continued so she was started on LR with 20 units of Pitocin and TXA ordered. By the time of my arrival patient was resting in bed and denied dizziness or lightheadedness. TXA was running. Uterus was firm and bleeding appeared well controlled. was doing well. care: good care, initiated at week # (10), number of visits (7) and pounds weight gain (10) Dating criteria OB: LMP confirmed by 1st trimester US Ultrasounds: normal 1st trimester US and normal mid trimester US (incomplete US, face and ventricular outflow tracks not well seen, follow up US never completed) Obstetrical complications: none Medical complications OB: none Preadmission Labs Last OB Lab Results: Blood Type O Positive 02/12/21 11:55 02/12/21 Antibody Screen Negative 02/12/21 11:55 02/12/21 Hematocrit 32.3 % (36-46) L 07/24/21 05:20 07/24/21 Hemoglobin 10.9 g/dL (12.0-16.0) L 07/24/21 05:20 07/24/21 Hepatitis B Surface Antigen Negative s/c (NEGATIVE) 02/12/21 11:55 02/12/21 Hepatitis C Antibody Negative s/c (NEGATIVE) 02/12/21 11:55 02/12/21 Rubella Antibody 3.9 IU/mL (>15) L 02/12/21 11:55 02/12/21 Varicella-Zoster IgG Antibody 481 index (Immune >165) 02/12/21 11:55 02/12/21 -: Urine: negative External Labs -: Urine: negative Prior (ies) Past Pregnancies Del. Date GA/Weeks Labor Lgth Wt Sex Route Outcome Anesthesia Place Delv B reastfeed Preg Comp Name 10/31/14 36 9 6 lb 9 oz Male vaginal live - epidural IH Dr Nova 2 weeks labor Niko Medel 12/29/19 37.6 3 6 lb 5 oz Female vaginal live - epidural IH Dr. Blanco 4 mos. hemorrhage [place] Delivery Date: 10/31/14 Last Updated by: Ellen Bertrand R.N. *2nd Degree Perineal Laceration. *Dr Blanco was out of town when she went into Labor. Delivery Date: 12/29/19 Last Updated by: Hillary Lucas R.N. Fast labor, with about 1 hr back pain preceding 3 hr labor to . PPH+Heavy bleeding for a few hours; given Pitocin, Methergine, Cytotec. 700 EBL. + HSV2 but has never had outbreak. Chlamydia treated during . [facility] Medical History Anemia (~2014) Collar bone fracture Encounter for drug screening HSV-2 (herpes simplex virus 2) infection No significant medical problems delivery (spontaneous vaginal delivery) (~10/11/14) UTI (urinary tract infection) (~2016) Surgical History [place] teeth extracted (~2019) Family History Mother No problems noted. Family/Other Breast cancer Father No problems noted. Grandfather Family history unknown Grandmother Family history unknown Grandfather Family history unknown Grandmother Family history unknown Sister RSV (acute bronchiolitis due to respiratory syncytial virus) Social History marital status: unmarried,living together number of children: 2 household members: significant other lives independently: Yes caregiver/support person: No pets and animals: No education level: high school occupational status: employed current occupational exposures/hazards: No special erica needs: No seatbelt use: always do you feel safe at home: Yes Smoking Status: Never smoker second hand exposure: No alcohol intake: never substance use type: does not use during the past year weight has: remained stable well-balanced diet: about half the time daily servings fruits/ve-4 caffeine: No Type(s) of exercise: walking and regular exercise frequency: 5-6 times per week duration: 30-45 minutes/day Meds Home Medications and Allergies Home Medications Medication Instructions Recorded Confirmed Type prenat.vits,choco,lio-qicz-boviz 1 tab PO DAILY #90 tab 12/31/20 07/23/21 Rx Allergies Allergy/AdvReac Type Severity Reaction Status Date / Time No Known Drug Allergies Allergy Verified 07/23/21 15:26 OB Exam Narrative Exam Narrative: Blood pressure 105/55, pulse 101 HENMT Head: normal to inspection Mouth: oral mucosae normal Other: Resting comfortably in bed though pale Eyes General: appearance normal, both eyes and all related structures Resp Effort & Inspection: normal respiratory effort Auscultation: clear to auscultation bilaterally Cardio Rate: regular rate Rhythm: regular rhythm Extremities Lower extremity: Yes normal to inspection; No edema GI Other: Fundus firm below umbilicus Objective Labs Result Diagrams: 07/24/21 05:20 Assessment and Plan Assessment and Plan Assessment and Plan narrative: 26-year-old status post precipitous vaginal delivery in the ER parking lot followed by hemorrhage due to uterine atony. Rough total estimated blood loss 1 L as there was blood in the parking lot and on the stretcher (QBL in the center was 511 mL from the bed). Hemorrhage improved with IM Pitocin, IV Pitocin and TXA. Blood pressure was initially low in the 70s over 50s however improved the above interventions. Vitals signs now stable and patient without lightheadedness. Will finish TXA, continue IVF and give PO methergine series x4 doses Repeat H/H in 6 hours Routine orders
[2021-07-24 05:45] LABS: Add Manual Diff / Slide Review NO; Basophils Absolute Auto 0 /uL (0-100); Basophils Percent Auto 0.4 % (0-2); Eosinophils Absolute Auto 100 /uL (0-450); Eosinophils Percent Auto 1.1 % (2-4); Hematocrit 32.3 % (36-46); Hemoglobin 10.9 g/dL (12.0-16.0); Lymphocytes Absolute Auto 1700 /uL (1100-4500); Lymphocytes Percent Auto 23.4 % (25-40); Mean Corpuscular HGB Conc 33.7 % (30-36); Monocytes Absolute Auto 300 /uL (0-900); Monocytes Percent Auto 4.2 % (3-14); Neutrophils Absolute Auto 5300 /uL (1500-7000); Neutrophils Percent Auto 70.9 % (50-75); Platelet Count 255 X10^3/uL (150-400); Red Blood Cell Count 3.63 X10^6/uL (4.0-5.2); Red Cell Distribution Width 15.6 % (11.6-14.8); White Blood Cell Count 7.5 X10^3/uL (4.5-11.0)
[2021-07-24] MEDS: METHYLERGONOVINE 0.2 MG/ML VIAL IM (06:00)
[2021-07-24] MEDS: TRANEXAMIC ACID 1,000 MG in SODIUM CHLORIDE 0.9% 100 ML 200 MG IV (06:17)
[2021-07-24] MEDS: CARBOPROST 250 MCG/ML AMPUL IM (07:01)
[2021-07-24] MEDS: DIPHENOXYLATE/ATROP 2.5/0.025 TABLET 2 EACH PO (07:10)
[2021-07-24] MEDS: ONDANSETRON 4 MG/2 ML INJ IV (07:34)
[2021-07-24] MEDS: IBUPROFEN 600 MG TABLET PO (07:53)
[2021-07-24 08:27] LABS: Add Manual Diff / Slide Review NO; Basophils Absolute Auto 0 /uL (0-100); Basophils Percent Auto 0.2 % (0-2); Eosinophils Absolute Auto 0 /uL (0-450); Eosinophils Percent Auto 0.1 % (2-4); Hematocrit 32.6 % (36-46); Lymphocytes Absolute Auto 1300 /uL (1100-4500); Lymphocytes Percent Auto 7.3 % (25-40); Mean Corpuscular HGB Conc 33.7 % (30-36); Mean Corpuscular Hemoglobin 29.8 PG (26-34); Mean Corpuscular Volume 88.4 fL (80-100); Monocytes Absolute Auto 500 /uL (0-900); Monocytes Percent Auto 2.9 % (3-14); Neutrophils Absolute Auto 16100 /uL (1500-7000); Neutrophils Percent Auto 89.5 % (50-75); Platelet Count 249 X10^3/uL (150-400); Red Blood Cell Count 3.68 X10^6/uL (4.0-5.2); Red Cell Distribution Width 15.4 % (11.6-14.8)
[2021-07-24] MEDS: LACTATED RINGERS 1,000 ML 100 ML IV (08:28)
[2021-07-24 08:31] LABS: INR 0.9 (0.9-1.3); Prothrombin Time 10.4 SECONDS (10.1-12.7)
[2021-07-24 08:33] LABS: PTT Partial Thromboplastin Tim 25 SECONDS (26.4-36.2)
[2021-07-24 08:35] LABS: Fibrinogen 438 mg/dL (211-428)
[2021-07-24 09:15] LABS: COVID19 -Nasal RAPID Negative (Negative)
[2021-07-24] MEDS: OXYCODONE IR 5 MG TABLET PO (09:39)
[2021-07-24 11:43] LABS: Add Manual Diff / Slide Review NO; Basophils Absolute Auto 100 /uL (0-100); Basophils Percent Auto 0.2 % (0-2); Eosinophils Absolute Auto 0 /uL (0-450); Hematocrit 31.5 % (36-46); Hemoglobin 10.7 g/dL (12.0-16.0); Lymphocytes Absolute Auto 1200 /uL (1100-4500); Mean Corpuscular Hemoglobin 30.2 PG (26-34); Mean Corpuscular Volume 88.9 fL (80-100); Monocytes Absolute Auto 400 /uL (0-900); Neutrophils Absolute Auto 18800 /uL (1500-7000); Neutrophils Percent Auto 91.8 % (50-75); Platelet Count 225 X10^3/uL (150-400); Red Blood Cell Count 3.55 X10^6/uL (4.0-5.2); White Blood Cell Count 20.5 X10^3/uL (4.5-11.0)
--- NOTE | 2021-07-24 11:46 | PC.ADMIT ---
[id number] [facility] Admission Note: The patient,Carmelita Knapp,26 y/o, was given written information regarding hospital policies, unit procedures and contact persons. Patient's smoking status: Never smoker.
[2021-07-24] MEDS: METHYLERGONOVINE 0.2 MG TABLET PO ×2 (12:26→19:22)
[2021-07-24] MEDS: LACTATED RINGERS 1,000 ML 125 ML IV (17:37)
[2021-07-25] MEDS: IBUPROFEN 600 MG TABLET PO (00:22)
[2021-07-25] MEDS: ACETAMINOPHEN 325 MG TABLET 650 MG PO (00:22)
[2021-07-25] MEDS: METHYLERGONOVINE 0.2 MG TABLET PO ×2 (01:32→07:43)
[2021-07-25 05:21] LABS: Hematocrit 22.2 % (36-46); Hemoglobin 7.6 g/dL (12.0-16.0)
--- NOTE | 2021-07-25 07:23 | P.DS_ITS ---
Discharge Providers Provider Date of admission: 07/24/21 04:40 Discharge Date: 07/25/21 Primary care physician: Jenifer Atkins DO Consults: 07/25/21 05:19 Consult to Fat Purification Worker Routine Comment: Discharge provider: Jenifer Atkins DO Summary Hospital Course Date Patient Seen: 07/25/21 Time Patient Seen: 08:00 Diagnoses: 37 weeks of Spontaneous vaginal delivery hemorrhage Acute blood loss anemia Hospital Course: Patient is a 26-year-old G3 now P3 after precipitous vaginal delivery in the ER parking lot on 07/24/21 at 37 weeks and 6 days. She was immediately brought into the ER than transfer to center. Delivery was complicated by hemorrhage ultimately controlled with Pitocin, TXA, Methergine and Hemabate. Remainder of course was uncomplicated. Admission H&H was 10.9 and 32.3. Discharge H&H 7.6 and 22.2. She was without symptoms of anemia at rest or with ambulation and vital signs were normal. She was started on iron given acute blood loss anemia. Day of discharge she was ambulating, voiding and passing flatus. Vaginal bleeding was light to moderate and decreasing. Pain controlled. Breast-feeding was going well without concerns in the . Patient advised to call for fevers, severe pain or bleeding through more than a pad an hour. Follow-up in 6 weeks for visit or sooner if needed. She is interested in an IUD for contraception. Peripartum Data Infant Delivery Method: Natural Vaginal Laceration Description: None complications: uterine atony [place] 1: Gender: Female Disposition of : home Status at Discharge Cognitive/behavioral status at discharge: at baseline, oriented Functional status at discharge: independent ambulation Overall status at discharge: patient is progressing back to baseline Time Spent with Patient Time attestation: Total time spent providing and/or coordinating discharge services: Time spent: Less than 30 minutes Objective Labs Result Diagrams: 07/25/21 05:10 Labs: Laboratory Results - last 24 hr 07/24/21 07/24/21 07/24/21 05:20 08:12 08:12 WBC 18.0 H D RBC 3.68 L Hgb 11.0 L Hct 32.6 L MCV 88.4 MCH 29.8 MCHC 33.7 RDW 15.4 H Plt Count 249 Neut % (Auto) 89.5 H Lymph % (Auto) 7.3 L [place] % (Auto) 2.9 L Eos % (Auto) 0.1 L Baso % (Auto) 0.2 Neut # (Auto) 13018 H Lymph # (Auto) 1300 [place] # (Auto) 500 Eos # (Auto) 0 Baso # (Auto) 0 PT 10.4 INR 0.9 APTT 25 L Fibrinogen SARS-CoV-2 (PCR) Blood Type O Positive Antibody Screen Negative 07/24/21 07/24/21 07/24/21 08:12 08:57 11:35 WBC 20.5 H RBC 3.55 L Hgb 10.7 L Hct 31.5 L MCV 88.9 MCH 30.2 MCHC 34.0 RDW 16.0 H Plt Count 225 Neut % (Auto) 91.8 H Lymph % (Auto) 6.0 L [place] % (Auto) 2.0 L Eos % (Auto) 0.0 L Baso % (Auto) 0.2 Neut # (Auto) 15955 H Lymph # (Auto) 1200 [place] # (Auto) 400 Eos # (Auto) 0 Baso # (Auto) 100 PT INR APTT Fibrinogen 438 H SARS-CoV-2 (PCR) Negative Blood Type Antibody Screen 07/25/21 05:10 WBC RBC Hgb 7.6 L Hct 22.2 L MCV MCH MCHC RDW Plt Count Neut % (Auto) Lymph % (Auto) [place] % (Auto) Eos % (Auto) Baso % (Auto) Neut # (Auto) Lymph # (Auto) [place] # (Auto) Eos # (Auto) Baso # (Auto) PT INR APTT Fibrinogen SARS-CoV-2 (PCR) Blood Type Antibody Screen Exam Vital Signs (past 8 hours): Temperature 98.4? blood pressure 103/69 heart rate 92 respirations 17 Narrative Exam Narrative: General: Awake and alert, no acute distress. HEENT: NCAT, EOMI, moist oral mucosa CV: Regular rate and rhythm, no murmurs, rubs or gallops Lungs: CTAB, no wheezes, rales, or rhonchi Abdomen: Soft, nontender; bowel tones active; uterus firm 2 cm below umbilicus Extremities: Warm, no edema Discharge Plan Discharge Plan Patient Disposition: Home Discharge orders & Medications Prescriptions: New ferrous sulfate 325 mg (65 mg iron) Tablet 325 mg PO DAILY Qty: 30 0RF ibuprofen 600 mg Tablet 600 mg PO Q6HR PRN (Reason: Pain, Mild (1-3)) Qty: 30 0RF docusate sodium 100 mg capsule 100 mg PO DAILY Qty: 30 0RF Continued prenat.vits,choco,xoa-dngl-kzdmv Tablet 1 tab PO DAILY Qty: 90 1RF Follow up/Referrals: Jenifer Atkins DO [Primary Care Provider] - 6 Weeks (Appointment with on Thursday,August at 1:30 pm ([facility])) Diet/Activity/Treatments Diet: Diet as Tolerated Skin/Wound/Dressing Care Report to your healthcare provider any signs of infection, such as:: chills, fever, night sweats, increased pain, unusual drainage and unusual redness Visit Report/Discharge Packet Visit Report Forms: Patient Portal/API, Stroke Signs & Symptoms Discharge Data Primary Care Provider: Jenifer Atkins
[2021-07-25] MEDS: FERROUS SULFATE 325 MG TABLET PO (09:34)
[2021-07-25 13:02] VITALS: BP 90/51; PULSE 86; RESP 16; TEMP 36.5
== END 2021-07-25 14:30 | disposition home or self-care (01) | DRG 832 ==
PROVIDERS: Admitting Provider Nurse Practitioner Obstetrics & Gynecology; PCP Family Medicine; Referring Provider Nurse Practitioner Obstetrics & Gynecology; Visit Provider Family Medicine
DX: O62.3 Precipitate labor (principal); O72.0 Third-stage hemorrhage; D62 Acute posthemorrhagic anemia; Z37.0 Single live birth; O90.81 Anemia of the puerperium; Z3A.37 37 weeks gestation of pregnancy; Z20.822 Contact with and (suspected) exposure to COVID-19; Z34.93 Encounter for supervision of normal pregnancy, unspecified, third trimester
CPT/HCPCS: 36415; 85014; 85018; 85025; 85384; 85610; 85730; 86850; 86900; 86901; 87635; 87653; C9803; G0379; J2210; J2405; J2590

== ENCOUNTER → 2022-07-23 14:56 | Outpatient (CLI) | payer MEDICAID, OTHER, SELFPAY ==
--- NOTE | 2022-07-23 14:57 | DI.US.S_ITS ---
PROCEDURE: US ABDOMEN LIMITED INDICATIONS: Epigastric pain TECHNIQUE: Real-time focused scanning was performed of the abdomen, with image documentation. COMPARISON: None. FINDINGS: Liver measures 15.3 cm without focal mass. Mobile foci of increased echogenicity are present within the gallbladder the largest measuring 9 mm. Wall thickness measures 2 mm. Common bile duct measures 4.3 mm. IMPRESSION: Cholelithiasis without imaging visualization of cholecystitis. Dictated by: Mary Kay Cuellar M.D. on 07/23/2022 at 17:07 Approved by: Mary Kay Cuellar M.D. on 07/23/2022 at 17:08
== END ==
PROVIDERS: PCP Family Medicine; Referring Provider Physician Assistant; Visit Provider Physician Assistant
DX: R10.13 Epigastric pain (principal); K80.20 Calculus of gallbladder without cholecystitis without obstruction
CPT/HCPCS: 76705

== ENCOUNTER → 2023-05-20 10:15 | Outpatient (CLI) | payer OTHER, MEDICAID, SELFPAY ==
[2023-05-20 11:07] LABS: Add Manual Diff / Slide Review NO; Basophils Absolute Auto 0 /uL (0-100); Basophils Percent Auto 0.5 % (0-2); Eosinophils Absolute Auto 100 /uL (0-450); Hematocrit 34.5 % (36-46); Hemoglobin 11.8 g/dL (12.0-16.0); Lymphocytes Absolute Auto 1200 /uL (1100-4500); Lymphocytes Percent Auto 21.9 % (25-40); Mean Corpuscular HGB Conc 34.1 % (30-36); Mean Corpuscular Hemoglobin 28.9 PG (26-34); Mean Corpuscular Volume 84.8 fL (80-100); Monocytes Absolute Auto 300 /uL (0-900); Monocytes Percent Auto 6.2 % (3-14); Neutrophils Absolute Auto 3700 /uL (1500-7000); Neutrophils Percent Auto 70.4 % (50-75); Platelet Count 305 X10^3/uL (150-400); Red Blood Cell Count 4.07 X10^6/uL (4.0-5.2); Red Cell Distribution Width 14.1 % (11.6-14.8); White Blood Cell Count 5.3 X10^3/uL (4.5-11.0)
[2023-05-20 11:10] LABS: Appearance Urine UA SL CLOUDY; Bilirubin Urine UA NEGATIVE (NEGATIVE); Color Urine UA YELLOW; Glucose Urine UA NEGATIVE (Negative); Ketones Urine UA NEGATIVE (NEGATIVE); Leukocyte Esterase Urine UA 2+ (NEGATIVE); Nitrite Urine UA NEGATIVE (Negative); Occult Blood Urine UA NEGATIVE (Negative); Protein Urine UA TRACE (Negative); Urobilinogen Urine UA 0.2 E.U./dL (0.2)
[2023-05-20 11:30] LABS: Bacteria Urine Moderate (10-30); Culture Indicated Urine Cult Not Indicated; RBC Urine None Seen (0-5/HPF); Squamous Epithelial Cell Urine 10-30 /HPF (0-5/HPF); Urine Volume 10mL (spun); WBC Urine 10-30/HPF (0-5/HPF)
[2023-05-20 12:35] LABS: Urine N gonorrhoeae NOT DETECTED
[2023-05-20 12:40] LABS: Urine Chlamydia NOT DETECTED
[2023-05-21 19:59] LABS: HIV 1 & 2 Ab/Ag 4th Gen Combo NEGATIVE (NEGATIVE); Hep C Virus Ab w/Reflex Quant NEGATIVE s/c (NEGATIVE); Hepatitis B Surface Antigen NEGATIVE s/c (NEGATIVE); Rubella Antibody IgG 4.5 IU/mL (>15)
[2023-05-22 03:36] LABS: RPR Screen Non Reactive (Non Reactive)
[2023-05-22 09:47] LABS: Varicella IgG Antibody 597 index (Immune >165)
== END ==
PROVIDERS: PCP Student in an Organized Health Care Education/Training Program; Referring Provider Student in an Organized Health Care Education/Training Program; Visit Provider Student in an Organized Health Care Education/Training Program
DX: Z34.01 Encounter for supervision of normal first pregnancy, first trimester (principal)
CPT/HCPCS: 36415; 80055; 81003; 81015; 86787; 86803; 86850; 86900; 86901; 87086; 87389; 87491; 87591

== ENCOUNTER → 2023-06-23 10:19 | Outpatient (CLI) | payer OTHER, MEDICAID, SELFPAY ==
--- NOTE | 2023-06-23 10:20 | DI.US.S_ITS ---
PROCEDURE: US OB >= 14 WEEKS FETUS INDICATIONS: OUTSIDE/PRIOR DATING DATA: Last menstrual period (LMP): 02/03/2023 LMP-based estimated date of delivery (HECTOR): 11/10/2023. First dating scan (date and location): None. Estimated date of delivery (HECTOR) from first dating scan: None. The calculations are made using the working HECTOR of 11/10/2023. TECHNIQUE: Real-time scanning was performed of the fetus, with image documentation and biometric measurements. Endovaginal scanning: Not performed COMPARISON: [facility], OB >= 14 WEEKS FETUS, 04/02/2021, 13:01. FINDINGS: General: A single living intrauterine gestation is present. Presentation: Vertex. Placenta: Placental position is posterior , without previa. Amniotic fluid index: 11.3 cm, normal range is 5-24 cm. Single deepest vertical pocket is 3.5 cm. heart rate: 155 beats per minute. Maternal cervical canal: 3.2 cm long. Normal lower limit is 2.5 cm. biometrics: Biparietal diameter: 4.8 cm, 20 weeks 4 days Head circumference: 17.9 cm, 20 weeks 2 days Abdominal circumference: 15.6 cm, 20 weeks 5 days Femur length: 3.8 cm, 20 weeks 3 days Clinically estimated gestational age: 20 weeks 0 days Composite gestational age from present scan: 20 weeks 4 days Estimated weight and percentile: 365 g, 79th percentile Anatomic survey: Neuro: Ventricles are non-dilated at less than 10 mm. Cisterna magna is normal at 3-11 mm. Cerebellum is normal in size and morphology. Nuchal skin fold: Normal at less than 6 mm between 14-21 weeks gestational age. Face: Nose and lips, facial profile are not well seen. Spine: No evidence for spina bifida. Heart: 4-chambered heart is present, with normal ventricular outflow tracts. Diaphragm: Diaphragm is intact. Stomach: Left-sided stomach is present. Kidneys: No hydronephrosis. Normal is less than 5 mm in 2nd trimester, less than 7 mm in 3rd trimester. Cord: 3-vessel cord has orthotopic insertion. Bladder: Normal in size. Extremities: All 4 extremities identified. IMPRESSION: 1. Living 2nd trimester intrauterine with no sonographic evidence of complications. Current ultrasound age is 4 days greater than clinical age based on LMP. 2. Suboptimal visualization of facial profile and face and nose and lips secondary to lie. No anatomical abnormalities identified. Comment: Consider limited follow-up ultrasound to evaluate the facial profile and nose and lips. We strive to produce accurate, complete, and clear reports of imaging services. To assist us in improving patient care, this report was composed using standard report templates and voice recognition software. Therefore, it may contain abnormal punctuation, insertions and/or omissions. Occasional wrong-word or sound-alike substitutions may occur. Though we review the report and make efforts to correct it, we do recommend that the report be read carefully in proper context to recognize any text inaccuracies. Dictated by: Jl Son M.D. on 06/23/2023 at 21:03 Approved by: Jl Son M.D. on 06/23/2023 at 21:09
== END ==
LOC: US 10:20
PROVIDERS: PCP Student in an Organized Health Care Education/Training Program; Referring Provider Family Medicine; Visit Provider Family Medicine
DX: Z34.82 Encounter for supervision of other normal pregnancy, second trimester (principal); Z3A.20 20 weeks gestation of pregnancy
CPT/HCPCS: 76811

== ENCOUNTER → 2023-07-22 10:44 | Outpatient (CLI) | payer OTHER, MEDICAID, SELFPAY ==
--- NOTE | 2023-07-22 11:00 | DI.US.S_ITS ---
PROCEDURE: US OB LIMITED INDICATIONS: Eval of facial profile, nose and lips OUTSIDE/PRIOR DATING DATA: Last menstrual period (LMP): 02/03/2023. LMP-based estimated date of delivery (HECTOR): 11/10/2023. TECHNIQUE: Real-time scanning was performed of the fetus, with image documentation and biometric measurements. Endovaginal scanning: Not performed COMPARISON: [facility], OB >= 14 WEEKS FETUS, 06/23/2023, 10:34. FINDINGS: General: A single living intrauterine gestation is present. Presentation: Vertex. Placenta: Placental position is posterior , without previa. Amniotic fluid index: 14.8 cm, normal range is 5-24 cm. Single deepest vertical pocket is 5.3 cm. heart rate: 160 beats per minute. Maternal cervical canal: 5 cm long. Normal lower limit is 2.5 cm. biometrics: Biparietal diameter: 6.0 centimeters, 24 weeks 3 days Head circumference: 22.7 centimeters, 24 weeks 5 days Abdominal circumference: 20.2 centimeters, 24 weeks 6 days Femur length: 4.9 centimeters, 24 weeks 3 days Clinically estimated gestational age: 24 weeks 1 day Composite gestational age from present scan: 24 weeks 4 days Estimated weight and percentile: 719 grams, 65th percentile Other: Normal appearance of the facial profile, face, nose and lips. IMPRESSION: 1. Single live intrauterine consistent with 24 weeks and 4 days. 2. Normal appearance of the facial profile, face and nose and lips. We strive to produce accurate, complete, and clear reports of imaging services. To assist us in improving patient care, this report was composed using standard report templates and voice recognition software. Therefore, it may contain abnormal punctuation, insertions and/or omissions. Occasional wrong-word or sound-alike substitutions may occur. Though we review the report and make efforts to correct it, we do recommend that the report be read carefully in proper context to recognize any text inaccuracies. Dictated by: Sae Osullivan M.D. on 07/22/2023 at 15:32 Approved by: Sae Osullivan M.D. on 07/22/2023 at 15:34
== END ==
PROVIDERS: PCP Student in an Organized Health Care Education/Training Program; Referring Provider Family Medicine; Visit Provider Family Medicine
DX: Z34.82 Encounter for supervision of other normal pregnancy, second trimester (principal); Z3A.24 24 weeks gestation of pregnancy
CPT/HCPCS: 76815

== ENCOUNTER → 2023-09-22 13:16 | Outpatient (CLI) | payer OTHER, SELFPAY | PROVIDERS: PCP Student in an Organized Health Care Education/Training Program; Referring Provider Family Medicine; Visit Provider Family Medicine | DX: Z34.80 Encounter for supervision of other normal pregnancy, unspecified trimester (principal); Z3A.16 16 weeks gestation of pregnancy | CPT/HCPCS: 36415; 82105; 82677; 84702; 86336 ==

== ENCOUNTER → 2023-10-15 14:12 | Outpatient (CLI) | payer OTHER, SELFPAY ==
[2023-10-16 13:50] LABS: Strep Grp B PCR NEG for Grp B Strep
== END ==
PROVIDERS: PCP Student in an Organized Health Care Education/Training Program; Visit Provider Family Medicine
DX: Z34.80 Encounter for supervision of other normal pregnancy, unspecified trimester (principal)
CPT/HCPCS: 87653

== ENCOUNTER 2023-10-25 06:22 | Inpatient (IN) | payer OTHER, SELFPAY ==
[2023-10-25 08:46] LABS: Add Manual Diff / Slide Review NO; Basophils Absolute Auto 0 /uL (0-100); Basophils Percent Auto 0.3 % (0-2); Eosinophils Absolute Auto 0 /uL (0-450); Eosinophils Percent Auto 0.4 % (2-4); Hematocrit 31.8 % (36-46); Hemoglobin 10.4 g/dL (12.0-16.0); Lymphocytes Absolute Auto 1500 /uL (1100-4500); Mean Corpuscular HGB Conc 32.6 % (30-36); Mean Corpuscular Hemoglobin 25.3 PG (26-34); Mean Corpuscular Volume 77.5 fL (80-100); Monocytes Absolute Auto 500 /uL (0-900); Monocytes Percent Auto 4.5 % (3-14); Neutrophils Absolute Auto 8700 /uL (1500-7000); Neutrophils Percent Auto 80.8 % (50-75); Platelet Count 350 X10^3/uL (150-400); White Blood Cell Count 10.7 X10^3/uL (4.5-11.0)
--- NOTE | 2023-10-25 11:32 | P.HPOB_ITS ---
OB HPI Date/Time Date of admission: 10/25/23 Date Patient Seen: 10/25/23 Time Patient Seen: 11:33 History of Present Condition Chief complaint: Active labor : 4 Para: 3 Estimated Date of Delivery: 11/10/23 Estimated Gestational Age (weeks): 37 Narrative: Carmelita Knapp is a 28 year old female admitted in active labor History of Present care: good care, initiated at week # (7), number of visits (8) and pounds weight gain (-8) Dating criteria: LMP confirmed by 1st trimester US Ultrasounds: normal 1st trimester US and normal mid trimester US Obstetrical complications: none Medical complications: none Preadmission Labs Blood type: O (+) positive -: Antibody screen: negative, GBS status: negative, HBsAG: negative, HIV: negative and RPR/VDLR: negative -: Chlamydia screen: not detected and Gonorrhea screen: not detected -: Rubella: not immune and Varicella: immune HCAB: negative 1 hr GTT: 106 Evaluation Evaluation Baseline heart rate: 150 Variability: Moderate (11-25) monitor accelerations: Present Monitor Decelerations: Absent Contraction Frequency (minutes): 4 Uterine Contraction Intensity: Strong/Firm Category of Tracing: Reactive Status: Category l Dilation (cm): 6 Effacement (%): 80 station: -2 [facility] Medical History (Updated 09/02/23 @ 11:03 by Jacobo Gurrola MD) hemorrhage Precipitous delivery Anxiety delivery (spontaneous vaginal delivery) (~10/11/14) Collar bone fracture HSV-2 (herpes simplex virus 2) infection Anemia (~2014) UTI (urinary tract infection) (~2016) Encounter for drug screening Surgical History [place] teeth extracted (~2019) Family History (Updated 03/18/23 @ 10:40 by Seema Murrell RN) Mother No problems noted. Family/Other Breast cancer Father No problems noted. Grandfather Family history unknown Grandmother Family history unknown Grandfather Family history unknown Grandmother Family history unknown Sister RSV (acute bronchiolitis due to respiratory syncytial virus) Social History marital status: unmarried,living together number of children: 3 household members: significant other and children lives independently: Yes caregiver/support person: No housing: house pets and animals: No education level: high school occupational status: employed current occupational exposures/hazards: No special erica needs: No travel history: over 6 months ago seatbelt use: always water heater temp set < 120 deg: Yes working smoke detector in home: Yes fire extinguisher in home: Yes carbon monox detector in home: Yes firearms in home: No do you feel safe at home: Yes Smoking Status: Never smoker second hand exposure: No (s/o vapes, but only outside) alcohol intake: never substance use type: does not use during the past year weight has: other well-balanced diet: rarely or never daily servings fruits/ve-4 caffeine: No Type(s) of exercise: walking and regular exercise frequency: 5-6 times per week duration: 30-45 minutes/day Meds Home Medications and Allergies Home Medications Medication Instructions Recorded Confirmed Type [id number] 400 mcg-om3 35 mg-dha 25 1 tab PO 03/18/23 10/21/23 History mg-epa 5 mg-fish oil chewable tablet Allergies Allergy/AdvReac Type Severity Reaction Status Date / Time No Known Drug Allergies Allergy Verified 10/21/23 10:29 Review of Systems Review of Systems Narrative: No headaches. Good movement. No leakage of fluid. No significant vaginal bleeding. Regular contractions. OB Exam Vital signs Blood Pressure: 122/69 Pulse Rate: 77 Temperature: 36.4 F Narrative Exam Narrative: HEENT exam within normal limits. Lungs are clear to auscultation and percussion. No thyromegaly. Regular rate and rhythm no S3-S4 or murmurs. Abdomen is soft, nontender. Fetus is vertex. Uterus is nontender. Extremities without edema and nontender. Objective Labs 10/25/23 08:30 Labs: Laboratory Results - last 24 hr 10/25/23 08:30 WBC 10.7 RBC 4.10 Hgb 10.4 L Hct 31.8 L MCV 77.5 L MCH 25.3 L MCHC 32.6 RDW 16.0 H Plt Count 350 Neut % (Auto) 80.8 H Lymph % (Auto) 14.0 L [place] % (Auto) 4.5 Eos % (Auto) 0.4 L Baso % (Auto) 0.3 Neut # (Auto) 8700 H Lymph # (Auto) 1500 [place] # (Auto) 500 Eos # (Auto) 0 Baso # (Auto) 0 Blood Type O Positive Antibody Screen Negative Assessment and Plan Assessment and Plan Assessment and Plan narrative: 28-year-old 4 para 3 EDC 11/09 at 37 weeks 5 days who presents in active labor. Patient currently is using nitrous for pain control. heart tones category 1. Anticipate vaginal delivery. Time-Based Coding :: [TOTAL MINUTES] spent with patient and on the chart (including review of chart, obtaining history, exam, reviewing outside data, placing orders, documenting exam and treatment plan, and counseling patient) on [DATE].
[2023-10-25 11:41] VITALS: BP 122/69; PULSE 77; TEMP 2.4; TEMP 36.4
[2023-10-25] MEDS: LACTATED RINGERS 1,000 ML 100 ML IV (12:00)
--- NOTE | 2023-10-25 13:26 | P.PCNOB_ITS ---
Labor & Delivery Delivery date: 10/25/23 Delivery augmentation: rupture of membranes Delivery monitor: external FHT and external uterine Route of delivery: L&D Laceration Description: None Estimated blood loss (mL): 500 Narrative: Admitted for spontaneous labor on 10/25/2023 0622. She progressed adequately through the 1st stage over the course of 6 hours with AROM for labor augmentation. Patient fully dilated at 1223 and began pushing at 1256. Spontaneous vaginal delivery of a viable female in the MARCELLA position occurred at 1309. The was suctioned and stimulated at the perineum, and gave appropriate cry with movement of all extremities. Delayed cord clamping was observed for 60 seconds. The cord was clamped and cut, and the handed to mother for skin to skin. Cord blood and segment were obtained. The placenta was delivered without difficulty using gentle cord traction and found to be intact with a 3-vessel cord. After fundal massage the uterus was firm and bleeding stopped. The vagina and cervix were examined for lacerations, with none noted. Patient stable with rooming in, bonding skin to skin and attempting to breastfeed. [place] Baby 1: gender: Female Presentation: vertex Position: Left Occiput Anterior Placenta delivery description: Spontaneous Cord Vessel Description: 3 Vessels score (1 min): 9 score (5 min): 9 Plan for aftercare: Routine care
[2023-10-25] MEDS: ACETAMINOPHEN 325 MG TABLET 650 MG PO (15:21)
[2023-10-25] MEDS: IBUPROFEN 600 MG TABLET PO ×2 (15:22→22:38)
[2023-10-25 16:56] VITALS: BP 121/71
[2023-10-26] MEDS: ACETAMINOPHEN 325 MG TABLET 650 MG PO ×2 (02:14→14:58)
[2023-10-26] MEDS: IBUPROFEN 600 MG TABLET PO ×2 (06:36→14:57)
--- NOTE | 2023-10-26 14:49 | P.DS_ITS ---
Discharge Providers Provider Date of admission: 10/25/23 06:22 Discharge Date: 10/26/23 Primary care physician: Jacobo Gurrola MD Consults: 10/25/23 10:17 Consult to Anesthesiology Urgent Comment: Consulting Provider: Anesthesiologist Reason for consultation: Epidural Has provider been notified: No 10/26/23 13:35 Consult to Heating And Refrigeration Inspector Routine Comment: Discharge provider: Jacobo Gurrola MD Summary Hospital Course Date Patient Seen: 10/26/23 Time Patient Seen: 11:15 Diagnoses: # # Anemia of Hospital Course: Admitted for normal labor on 10/25/2023. Progressed adequately with AROM for labor augmentation to complete dilation over the course of 6 hours. She had an uncomplicated of a live female with no lacerations. Her course was uncomplicated. At discharge patient is ambulating well, tolerating normal diet, breast-feeding without difficulty, and pain is adequately controlled. She reports bleeding is similar to normal menses. Peripartum Data Delivery Method: Natural Vaginal Laceration Description: None complications: none [place] 1: Gender: Female Disposition of : home Status at Discharge Cognitive/behavioral status at discharge: at baseline, oriented Functional status at discharge: independent ambulation Overall status at discharge: patient is progressing back to baseline Time Spent with Patient Time attestation: Total time spent providing and/or coordinating discharge services: 30 minutes Objective Labs 10/25/23 08:30 Exam Narrative Exam Narrative: General: Well-appearing, well-nourished, no distress HEENT: Moist mucous membranes, no pallor CV: Regular rate and rhythm, no murmur auscultated Resp: CTAB, comfortable work of breathing Abdomen: Soft, bowel sounds present, fundus firm below umbilicus with appropriate tenderness Extremities: No edema, no calf tenderness or evidence of DVT Discharge Plan Discharge Plan Patient Disposition: Home Discharge orders & Medications Prescriptions: New ferrous sulfate 325 mg (65 mg iron) Tablet 325 mg PO Q OTHER DAY Qty: 90 0RF ibuprofen 600 mg Tablet 600 mg PO Q6HR PRN (Reason: Pain, Mild (1-3)) Qty: 90 1RF polyethylene glycol 3350 17 gram/dose powder 17 g PO DAILY Qty: 510 1RF Continued HGR41-[id number]-[id number] oil 400 mcg-35 mg -25 mg-5 mg tablet,chewable 1 tab PO Follow up/Referrals: Jacobo Gurrola MD [Physician] - 12/08/23 2:30 pm (Please arrive 15 minutes early for check in!) Visit Report/Discharge Packet Stand Alone Forms: Discharge: Care, Patient Portal/API, Stroke Signs & Symptoms Discharge Data Primary Care Provider: Suzette Au
[2023-10-26] MEDS: MEASLES,MUMPS,RUBELLA VACC/PF 0.5 ML VIAL SUBCUT (15:40)
== END 2023-10-26 15:55 | disposition home or self-care (01) | DRG 807 ==
PROVIDERS: Family Medicine; Admitting Provider Specialist; PCP Student in an Organized Health Care Education/Training Program; Referring Provider Specialist; Visit Provider Specialist
DX: O80 Encounter for full-term uncomplicated delivery (principal); Z37.0 Single live birth; Z3A.37 37 weeks gestation of pregnancy
CPT/HCPCS: 36415; 59050; 85025; 86850; 86900; 86901; G0379

== ENCOUNTER → 2024-09-14 10:57 | Outpatient (CLI) | payer OTHER, SELFPAY ==
[2024-09-14 11:35] LABS: Add Manual Diff / Slide Review NO; Hematocrit 33.3 % (36-46); Hemoglobin 10.7 g/dL (12.0-16.0); Lymphocytes Absolute Auto 1500 /uL (1100-4500); Mean Corpuscular HGB Conc 32.3 % (30-36); Mean Corpuscular Hemoglobin 24.0 PG (26-34); Mean Corpuscular Volume 74.2 fL (80-100); Platelet Count 354 X10^3/uL (150-400)
[2024-09-14 11:37] LABS: Hemoglobin A1C% w Est Avg Glu 5.1 % (4.0-6.0)
[2024-09-14 12:02] LABS: HEMOLYSIS < 15 (0-50); Iron 39 ug/dL (37-170)
[2024-09-14 12:13] LABS: Percent Iron Saturation 12 % (15-50); Total Iron Binding Capacity 332 ug/dL (265-497); Transferrin 272 mg/dL (206-381)
[2024-09-14 12:18] LABS: HCG Quantitative /Beta subunit 13190 mIU/mL
[2024-09-15 00:24] LABS: Hepatitis B Surface Antigen NEGATIVE s/c (NEGATIVE)
[2024-09-15 00:45] LABS: HIV 1 & 2 Ab/Ag 4th Gen Combo NEGATIVE (NEGATIVE); Hep C Virus Ab w/Reflex Quant NEGATIVE s/c (NEGATIVE)
== END ==
PROVIDERS: PCP Family Medicine; Referring Provider Family Medicine; Visit Provider Family Medicine
DX: O20.9 Hemorrhage in early pregnancy, unspecified (principal); O99.019 Anemia complicating pregnancy, unspecified trimester; O99.210 Obesity complicating pregnancy, unspecified trimester; E66.09 Other obesity due to excess calories
CPT/HCPCS: 36415; 80055; 83036; 83540; 83550; 84702; 86787; 86803; 86850; 86900; 86901; 87389

== ENCOUNTER → 2024-09-16 11:50 | Outpatient (CLI) | payer OTHER, SELFPAY ==
[2024-09-16 13:27] LABS: HCG Quantitative /Beta subunit 9522.2 mIU/mL
[2024-09-16 13:45] LABS: Ferritin 4 ng/mL (6-137)
[2024-09-16 13:48] LABS: Appearance Urine UA CLEAR; Bilirubin Urine UA NEGATIVE (NEGATIVE); Color Urine UA YELLOW; Glucose Urine UA NEGATIVE (Negative); Ketones Urine UA NEGATIVE (NEGATIVE); Leukocyte Esterase Urine UA 1+ (NEGATIVE); Nitrite Urine UA NEGATIVE (Negative); Occult Blood Urine UA 3+ (Negative); Protein Urine UA NEGATIVE (Negative); Specific Gravity Urine UA 1.010 (1.000-1.035); Urobilinogen Urine UA 0.2 E.U./dL (0.2)
[2024-09-16 13:50] LABS: pH Urine UA 7.0 (4.5-8.0)
[2024-09-16 15:12] LABS: Urine N gonorrhoeae NOT DETECTED
[2024-09-16 15:18] LABS: Urine Chlamydia NOT DETECTED
== END ==
PROVIDERS: PCP Family Medicine; Referring Provider Family Medicine; Visit Provider Family Medicine
DX: O20.9 Hemorrhage in early pregnancy, unspecified (principal); O99.210 Obesity complicating pregnancy, unspecified trimester; O99.019 Anemia complicating pregnancy, unspecified trimester; E66.09 Other obesity due to excess calories; D64.9 Anemia, unspecified
CPT/HCPCS: 36415; 81003; 81015; 82728; 84702; 87086; 87491; 87591

== ENCOUNTER 2024-09-20 11:38 | Emergency (ER) | payer OTHER, SELFPAY ==
[2024-09-20 11:59] VITALS: BP 117/71; PULSE 73; RESP 15; TEMP 36.3; O2SAT 98; BMI 34.3
--- NOTE | 2024-09-20 12:08 | DI.US.S_ITS ---
PROCEDURE: US PELVIC COMPLETE INDICATIONS: vaginal bleeding TECHNIQUE: Real-time scanning was performed of the pelvic organs, with image documentation. Additional endovaginal scanning was necessary due to incomplete visualization of the adnexal and endometrial structures by transabdominal scanning. COMPARISON: None. FINDINGS: Uterus: Uterus is anteverted and normal in size at 9.0 x 6.2 x 8.7 cm. The myometrium is homogeneous. The endometrium measures 20 mm combined thickness. Endometrium appears heterogeneous with several small cystic spaces, largest of which measures up to 2.2 cm. Ovaries: The right ovary measures 3.3 x 1.9 x 1.5 cm, with a calculated ovarian volume of 4.9 cc. The left ovary measures 0.9 x 2.6 x 1.0 cm, with a calculated ovarian volume of 1.3 cc. The ovaries have a normal sonographic appearance. Less than 12 follicles can be seen in each ovary. No adnexal masses are seen. Other: No pathologic free abdominal or pelvic fluid. IMPRESSION: Thickened heterogeneous endometrium with multiple small cystic spaces. Findings are of uncertain etiology although correlation for endometrial hyperplasia is recommended. Consider pelvic MRI for further evaluation if indicated clinically. Approved by: Lele Alicia M.D. on 09/20/2024 at 14:16
[2024-09-20 12:53] LABS: Add Manual Diff / Slide Review NO; Hematocrit 33.4 % (36-46); Hemoglobin 10.6 g/dL (12.0-16.0); Lymphocytes Absolute Auto 1300 /uL (1100-4500); Mean Corpuscular HGB Conc 31.6 % (30-36); Mean Corpuscular Hemoglobin 23.4 PG (26-34); Mean Corpuscular Volume 74.1 fL (80-100); Platelet Count 326 X10^3/uL (150-400)
--- NOTE | 2024-09-20 13:35 | ED.PREGNANCY ---
HPI - General Chief complaint: Vaginal Bleeding Stated complaint: possible miscarriage Time Seen by Provider: 09/20/24 12:07 Source: patient Mode of arrival: Ambulatory Limitations: no limitations History of Present Illness HPI Narrative: 29-year-old female presents to the ED with 1 week of vaginal bleeding, pelvic cramping. Patient was seen by her PCP Dr. Gurrola to monitor her , and was estimated to be 12 weeks as of 09/14/24. Her ultrasound showed multiple uterine hypoechoic fluid sacs with no identifiable pole, the largest measuring 2.4 cm at its widest point, likely right ovarian corpus luteum cyst, no free fluid in cul-de-sac. Patient was asked to follow-up for subsequent serial HCGs and monitoring. Patient's hCG on 09/14/2024 was 13,190, and 9522 on 09/16/2024. Patient was then advised to follow-up with Dr. Gurrola on 10/05/2024. No fevers, chills, chest pain, shortness of breath, lightheadedness, dizziness, syncope. Related Data Previous Rx's ?Medication ?Instructions ?Recorded vit 122-ferrous fumarate 1 tab PO DAILY #90 tabs 09/13/24 27 mg iron-folic acid 800 mcg tablet ( Multi) Allergies Allergy/AdvReac Type Severity Reaction Status Date / Time No Known Drug Allergies Allergy Verified 09/13/24 14:04 Review of Systems Constitutional Constitutional: Denies chills, Denies fatigue, Denies fever(s), Denies frequent falls, Denies lethargy and Denies weakness Eyes Eyes: Denies change in vision, Denies eye discharge, Denies irritation and Denies loss of vision ENT Ears, Nose, Mouth, and Throat: Denies change in voice, Denies dizziness, Denies neck pain, Denies sore throat and Denies throat swelling Cardiovascular Cardiovascular: Denies chest pain, Denies irregular heart rhythm, Denies lightheadedness, Denies palpitations, Denies dyspnea, Denies dyspnea on exertion and Denies orthopnea Respiratory Respiratory: Denies cough, Denies dyspnea, Denies dyspnea on exertion and Denies wheezing Gastrointestinal Gastrointestinal: Denies abdominal pain, Denies change in bowel habits, Denies diarrhea, Denies nausea and Denies vomiting Genitourinary Genitourinary: Reports abnormal vaginal bleeding and Reports pelvic pain Musculoskeletal Musculoskeletal: Denies neck pain and Denies numbness Integumentary/Breasts Skin/Breast: Denies pruritus, Denies erythema, Denies rash and Denies wounds Neurologic Neurologic: Denies behavioral changes, Denies confusion, Denies dizziness, Denies frequent falls, Denies loss of vision, Denies numbness and Denies weakness Psychiatric Psychiatric: Denies anxiety, Denies behavioral changes, Denies confusion, Denies depression, Denies homicidal ideation and Denies suicidal ideation Endocrine Endocrine: Denies fatigue, Denies flushing and Denies palpitations Hematologic/Lymphatic Hematologic/Lymphatic: Denies easy bruising Allergic/Immunologic Allergic/Immunologic: Denies urticaria, Denies throat swelling and Denies wheezing Exam Narrative Exam Narrative: Const General:?cooperative, healthy appearing and comfortable [facility] Head:?normal to inspection Ears:?hearing grossly normal bilaterally Nose:?external nose normal Face and sinus:?normal facial exam and sinuses nontender Mouth:?oral mucosae normal Throat:?posterior oropharynx normal Eyes General:?appearance normal, both eyes and all related structures Neck Neck:?normal visual inspection and no lymphadenopathy noted Resp Effort & Inspection:?normal respiratory effort Auscultation:?clear to auscultation bilaterally Cardio Rate:?regular rate Rhythm:?regular rhythm Neuro General:?patient alert, patient awake and patient oriented x3 Initial Vital Signs Initial Vital Signs: Vital Signs Temperature 97.3 F L 09/20/24 11:59 Pulse Rate 73 09/20/24 11:59 Respiratory Rate 15 09/20/24 11:59 Blood Pressure 117/71 09/20/24 11:59 Pulse Oximetry 98 09/20/24 11:59 Oxygen Delivery Method Room Air 09/20/24 11:59 Course Orders Ordered: ED Orders 09/20/24 12:08 US pelvic complete Stat 09/20/24 12:25 Complete Blood Count AUTO DIFF Stat Comprehensive Metabolic Panel Stat HCG Quantitative /Beta subunit Stat Type and Screen Stat Vital Signs Vital signs: Vital Signs - 8 hr 09/20/24 11:59 09/20/24 14:44 Temperature 97.3 F L Pulse Rate 73 69 Respiratory Rate 15 16 Blood Pressure 117/71 112/65 Pulse Oximetry 98 100 Oxygen Delivery Method Room Air Room Air MDM - OB/Uterine Contractions Lab Data 09/20/24 12:25 09/20/24 12:25 Labs: Lab Results 09/20/24 Range/Units 12:25 WBC 5.0 (4.5-11.0) X10^3/uL RBC 4.51 (4.0-5.2) X10^6/uL Hgb 10.6 L (12.0-16.0) g/dL Hct 33.4 L (36-46) % MCV 74.1 L (80-100) fL MCH 23.4 L (26-34) PG MCHC 31.6 (30-36) % RDW 17.0 H (11.6-14.8) % Plt Count 326 (150-400) X10^3/uL Neut % (Auto) 66.4 (50-75) % Lymph % (Auto) 25.2 (25-40) % [place] % (Auto) 6.3 (3-14) % Eos % (Auto) 1.6 L (2-4) % Baso % (Auto) 0.5 (0-2) % Neut # (Auto) 3300 (2396-2526) /uL Lymph # (Auto) 1300 (0914-3823) /uL [place] # (Auto) 300 (0-900) /uL Eos # (Auto) 100 (0-450) /uL Baso # (Auto) 0 (0-100) /uL Sodium 137 (137-145) mmol/L Potassium 4.1 (3.4-5.1) mmol/L Chloride 106 (98-107) mmol/L Carbon Dioxide 23 (22-32) mmol/L BUN 4 L (7-17) mg/dL Creatinine 0.60 (0.52-1.04) mg/dL Estimated GFR > 60 (>60) mL/min BUN/Creatinine Ratio 6.7 (6-22) Glucose 92 (70-99) mg/dL Calcium 8.7 (8.4-10.2) mg/dL Total Bilirubin 0.5 (0.2-1.3) mg/dL AST 25 (14-36) IU/L ALT 15 (<35) IU/L Alkaline Phosphatase 70 (38-126) U/L Total Protein 7.6 (6.3-8.2) g/dL Albumin 4.3 (3.5-5.0) g/dL Globulin 3.3 (1.7-4.1) g/dL Albumin/Globulin Ratio 1.3 (1.0-2.8) HCG, Quant 4715.1 mIU/mL Blood Type O Positive Antibody Screen Negative MDM Narrative Medical decision making narrative: 29-year-old female presents to the ED with 1 week of vaginal bleeding, pelvic cramping. Labs, quantitative hCG, pelvic ultrasound obtained. HCG today was measured at 4715, which appears to be a further decline. Labs otherwise unremarkable. Pelvic ultrasound shows thickened heterogeneous endometrium with multiple small cystic spaces. Findings are of uncertain etiology although correlation for endometrial hyperplasia is recommended. Discussed findings with patient that findings are most consistent with a incomplete miscarriage. H&H is stable today. Patient agrees to follow-up with Dr. Coy's office for further evaluation and treatment. ED return precautions were discussed with patient. Patient verbalized understanding. Medical records reviewed: Yes Discharge Plan Departure Patient Disposition: Home Clinical Impression: Vaginal bleeding during Instructions: DI for Miscarriage, DI for Vaginal Bleeding During Activity Restrictions/Additional Instructions: You were evaluated in the ED today for vaginal bleeding during . Your hCG today has declined to 4,715. The hCG numbers were 13,190 on 09/14/2024 and 9,522 on 09/16/2024 respectively. The ultrasound did not show a viable but showed multiple small cystic spaces. It is likely that you were having a miscarriage. Please follow-up with Dr. Jacobo Gurrola as soon as possible for further evaluation and treatment. Return to the ED if you have worsening symptoms. Prescriptions: No Action Multi 27-800 mg-mcg tablet 1 tab PO DAILY Qty: 90 3RF Referrals: Jacobo Gurrola MD [Primary Care Provider, Family Practice] Stand Alone Forms: Patient Portal/API
[2024-09-20 14:20] LABS: Alanine Aminotransferase 15 IU/L (<35); Albumin 4.3 g/dL (3.5-5.0); Albumin Globulin Ratio 1.3 (1.0-2.8); Alkaline Phosphatase 70 U/L (38-126); Blood Urea Nitrogen 4 mg/dL (7-17); Calcium 8.7 mg/dL (8.4-10.2); Carbon Dioxide 23 mmol/L (22-32); Chloride 106 mmol/L (98-107); Estimated Glomerular Filt Rate > 60 mL/min (>60); Globulin 3.3 g/dL (1.7-4.1); Glucose 92 mg/dL (70-99); HEMOLYSIS < 15 (0-50); Potassium 4.1 mmol/L (3.4-5.1); Sodium 137 mmol/L (137-145); Total Protein 7.6 g/dL (6.3-8.2)
[2024-09-20 14:37] LABS: HCG Quantitative /Beta subunit 4715.1 mIU/mL
[2024-09-20 14:44] VITALS: BP 112/65; PULSE 69; RESP 16; O2SAT 100
== END 2024-09-20 15:04 | disposition home or self-care (01) ==
PROVIDERS: Emergency Provider Student in an Organized Health Care Education/Training Program; PCP Family Medicine
DX: O46.91 Antepartum hemorrhage, unspecified, first trimester (principal); Z3A.12 12 weeks gestation of pregnancy
CPT/HCPCS: 36415; 76830; 76856; 80053; 84702; 85025; 86850; 86900; 86901; 99281; 99283; 99284

== ENCOUNTER 2024-09-20 22:13 | Emergency (ER) | payer OTHER, SELFPAY ==
[2024-09-20 21:59] VITALS: BP 120/78; PULSE 94; RESP 16; TEMP 36.8; O2SAT 99; BMI 36.0
--- NOTE | 2024-09-21 06:50 | ED.FEMALEGU ---
HPI - Female Genitourinary General Chief complaint: Urogenital-Female Stated complaint: miscarriage Time Seen by Provider: 09/20/24 23:16 Source: patient and EMS Mode of arrival: EMS Related Data Previous Rx's ?Medication ?Instructions ?Recorded vit 122-ferrous fumarate 1 tab PO DAILY #90 tabs 09/13/24 27 mg iron-folic acid 800 mcg tablet ( Multi) Allergies Allergy/AdvReac Type Severity Reaction Status Date / Time No Known Drug Allergies Allergy Verified 09/13/24 14:04 Patient History Medical History (Updated 09/20/24 @ 23:51 by Maryuri Heredia RN) (spontaneous vaginal delivery) (~10/11/14) hemorrhage Precipitous delivery Anxiety delivery Collar bone fracture HSV-2 (herpes simplex virus 2) infection Anemia (~2014) UTI (urinary tract infection) (~2016) Encounter for drug screening Surgical History [place] teeth extracted (~2019) Family History (Updated 09/13/24 @ 14:09 by Seema Murrell RN) Mother Heart valve disorder Aunt Breast cancer Father Hypertension Grandfather Family history unknown Grandmother Family history unknown Grandfather Family history unknown Grandmother Family history unknown Sister RSV (acute bronchiolitis due to respiratory syncytial virus) Exam Initial Vital Signs Initial Vital Signs: Vital Signs Temperature 98.3 F 09/20/24 21:59 Pulse Rate 94 H 09/20/24 21:59 Respiratory Rate 16 09/20/24 21:59 Blood Pressure 120/78 09/20/24 21:59 Pulse Oximetry 99 09/20/24 21:59 Oxygen Delivery Method Room Air 09/20/24 21:59 Discharge Plan Departure Patient Disposition: Left Without Being Seen Clinical Impression: Patient left without being seen Prescriptions: No Action Multi 27-800 mg-mcg tablet 1 tab PO DAILY Qty: 90 3RF
== END 2024-09-20 23:51 | disposition left against medical advice (07) ==
PROVIDERS: Emergency Provider Family Medicine; PCP Family Medicine
DX: Z53.21 Procedure and treatment not carried out due to patient leaving prior to being seen by health care provider (principal)